=== PATIENT | male | born 1960 | race Caucasian/White ===

== ENCOUNTER 2018-12-07 08:38 | Emergency (ER) | payer OTHER ==
[2018-12-07] MEDS ORDERED: IPRATROPIUM-ALBUTEROL 3 ML NEB INHALATION STA (09:03)
--- NOTE | 2018-12-07 09:14 | ED ---
SOB HPI - General Chief Complaint: Shortness of Breath Stated Complaint: cough, SOB Time Seen by Provider: 12/07/18 08:53 Source: patient, RN notes reviewed Mode of arrival: wheelchair Limitations: no limitations - History of Present Illness Initial Comments: 58-year-old male presents emergency Department with chief complaint of cough congestion. Patient states she's been sick last few days. 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 Patient states he started with a cough which is minimally productive. Patient states he started cutting back on the smoking which is helped but states that he still requiring the use of his inhaler. Patient reports no fevers chills. Patient denies chest pain, headache, dizziness, leg swelling. - Related Data Home Medications Medication Instructions Recorded Confirmed Albuterol Inhaler [Ventolin Hfa 1 - 2 puff INHALATION RT-Q6H PRN 12/07/18 12/07/18 Inhaler] Atenolol [Tenormin] 50 mg PO DAILY 12/07/18 12/07/18 Atorvastatin Calcium [Lipitor] 20 mg PO DAILY 12/07/18 12/07/18 Famotidine [Pepcid] 20 mg PO BID PRN 12/07/18 12/07/18 Ibuprofen [Motrin] 600 mg PO Q8HR PRN 12/07/18 12/07/18 Lisinopril 20 mg PO DAILY 12/07/18 12/07/18 Loratadine [Claritin] 10 mg PO DAILY PRN 12/07/18 12/07/18 Multivitamins, Thera [Multivitamin 1 tab PO DAILY 12/07/18 12/07/18 (formulary)] Previous Rx's Medication Instructions Recorded Albuterol Sulfate [Proair Hfa] 1 - 2 puff INHALATION Q4HR PRN #1 12/07/18 inhaler Azithromycin [Zithromax Z-pack] 0 mg PO DIRECTED #1 pack 12/07/18 predniSONE 50 mg PO DAILY #5 tab 12/07/18 Allergies Allergy/AdvReac Type Severity Reaction Status Date / Time Penicillins Allergy Swelling Verified 12/07/18 08:58 Review of Systems ROS Statement: Those systems with pertinent positive or pertinent negative responses have been documented in the HPI. ROS Other: All systems not noted in ROS Statement are negative. Past Medical History Past Medical History: Hyperlipidemia, Hypertension History of Any Multi-Drug Resistant Organisms: None Reported Additional Past Surgical History / Comment(s): bilateral hip replace Past Psychological History: Depression Smoking Status: Current every day smoker Past Alcohol Use History: None Reported Past Drug Use History: None Reported General Exam Limitations: no limitations General appearance: alert, in no apparent distress Head exam: Present: atraumatic, normocephalic, normal inspection Eye exam: Present: normal appearance, PERRL, EOMI. Absent: scleral icterus, conjunctival injection, periorbital swelling ENT exam: Present: normal exam, normal oropharynx, mucous membranes moist Neck exam: Present: normal inspection, full ROM. Absent: tenderness, meningismus, lymphadenopathy Respiratory exam: Present: wheezes. Absent: normal lung sounds bilaterally, respiratory distress, rales, rhonchi, stridor Cardiovascular Exam: Present: regular rate, normal rhythm, normal heart sounds. Absent: systolic murmur, diastolic murmur, rubs, gallop, clicks GI/Abdominal exam: Present: soft, normal bowel sounds. Absent: distended, tenderness, guarding, rebound, rigid Course Vital Signs 12/07/18 12/07/18 12/07/18 08:43 09:21 09:31 Temperature 97.8 F Pulse Rate 52 L 49 L 54 L Respiratory 22 Rate Blood Pressure 142/92 O2 Sat by Pulse 97 Oximetry Medical Decision Making - Medical Decision Making 58-year-old male presented for cough congestion. Chest x-ray reviewed no acute abnormality. Patient does have mild underlying COPD. Patient given Solu-Medrol be discharged with prednisone and azithromycin along with pro-air inhaler. Patient agreed improvement after DuoNeb treatment in emergency department. Disposition Clinical Impression: COPD exacerbation, Acute bronchitis Disposition: HOME SELF-CARE Condition: Stable Instructions (If sedation given, give patient instructions): Acute Bronchitis (ED) Additional Instructions: Please return to the Emergency Department if symptoms worsen or any other concerns. Prescriptions: predniSONE 50 mg PO DAILY #5 tab Albuterol Sulfate [Proair Hfa] 1 - 2 puff INHALATION Q4HR PRN #1 inhaler PRN Reason: difficulty in breathing Azithromycin [Zithromax Z-pack] 0 mg PO DIRECTED #1 pack Is patient prescribed a controlled substance at d/c from ED?: No Referrals: None,Stated [Primary Care Provider] - 1-2 days Time of Disposition: 10:05
--- NOTE | 2018-12-07 09:48 | XR ---
EXAMINATION TYPE: XR chest 2V DATE OF EXAM: 12/07/2018 COMPARISON: NONE HISTORY: Shortness of breath and cough TECHNIQUE: Frontal and lateral views of the chest are obtained. FINDINGS: There is no focal air space opacity, pleural effusion, or pneumothorax seen. Increased AP diameter of the chest with relative flattening the hemidiaphragms may be indicative of underlying [employer] D. There is eventration of the right hemidiaphragm. Aorta is dense. The cardiac silhouette size is en larged. The osseous structures are intact. IMPRESSION: Cardiomegaly.
[2018-12-07] MEDS ORDERED: methylPREDNISolone SOD SUCCI 125 MG/2 ML VIAL IM ONE (10:03)
[2018-12-07 10:32] VITALS: BP 174/92; PULSE 57; RESP 18; TEMP 98.2
== END 2018-12-07 10:29 | disposition home or self-care (01) ==
LOC: EC 08:38
DX: J20.9 Acute bronchitis, unspecified (principal); J44.0 Chronic obstructive pulmonary disease with (acute) lower respiratory infection; J44.1 Chronic obstructive pulmonary disease with (acute) exacerbation; E78.5 Hyperlipidemia, unspecified; I10 Essential (primary) hypertension; F17.200 Nicotine dependence, unspecified, uncomplicated; Z79.899 Other long term (current) drug therapy; Z88.0 Allergy status to penicillin
CPT/HCPCS: 99285; 96372; 94640; 71046; J2930

== ENCOUNTER 2018-12-22 08:40 | Emergency (ER) | payer OTHER ==
[2018-12-22 09:12] VITALS: RESP 20
--- NOTE | 2018-12-22 09:12 | ED ---
General Adult HPI - General Chief complaint: Shortness of Breath Stated complaint: cough Time Seen by Provider: 12/22/18 08:47 Source: patient, RN notes reviewed Mode of arrival: wheelchair Limitations: no limitations - History of Present Illness Initial comments: Patient is a pleasant 58-year-old male presenting to the emergency Department with cough. Patient states he was here 7-10 days ago with similar symptoms. Patient states he received 3 days of steroids. Symptoms resolved for 3-5 days and then returned several days ago. Patient does have cough. Patient does have occasional green sputum. Patient states he does use his inhaler that also seems to help. Patient requests repeat treatment. Patient also complains of chronic right shoulder discomfort. Patient requests steroid injection for this. Patient states he is not able to see his orthopedic doctor for another week or so. - Related Data Home Medications Medication Instructions Recorded Confirmed Atenolol [Tenormin] 50 mg PO DAILY 12/07/18 12/22/18 Atorvastatin Calcium [Lipitor] 20 mg PO DAILY 12/07/18 12/22/18 Famotidine [Pepcid] 20 mg PO DAILY 12/07/18 12/22/18 Ibuprofen [Motrin] 600 mg PO Q8HR PRN 12/07/18 12/22/18 Lisinopril 20 mg PO DAILY 12/07/18 12/22/18 Loratadine [Claritin] 10 mg PO HS PRN 12/07/18 12/22/18 Multivitamins, Thera [Multivitamin 1 tab PO DAILY 12/07/18 12/22/18 (formulary)] Albuterol Sulfate [Proair Hfa] 1 - 2 puff INHALATION RT-Q4H PRN 12/22/18 12/22/18 Famotidine [Pepcid] 20 mg PO HS PRN 12/22/18 12/22/18 Previous Rx's Medication Instructions Recorded Albuterol Inhaler [Ventolin Hfa 2 puff INHALATION Q4HR PRN #1 12/22/18 Inhaler] inhaler Azithromycin [Zithromax Z-pack] 250 mg PO DIRECTED #6 tab 12/22/18 methylPREDNISolone Dose Pack 24 mg PO DAILY #1 tab 12/22/18 [Medrol Dose Pack] Allergies Allergy/AdvReac Type Severity Reaction Status Date / Time Penicillins Allergy Swelling Verified 12/22/18 09:02 Review of Systems ROS Statement: Those systems with pertinent positive or pertinent negative responses have been documented in the HPI. ROS Other: All systems not noted in ROS Statement are negative. Constitutional: Denies: fever, chills Eyes: Denies: eye pain ENT: Denies: ear pain Respiratory: Reports: cough Cardiovascular: Denies: chest pain Endocrine: Denies: fatigue Gastrointestinal: Denies: abdominal pain Genitourinary: Denies: dysuria Musculoskeletal: Denies: back pain Skin: Denies: rash Neurological: Denies: headache Past Medical History Past Medical History: Hyperlipidemia, Hypertension History of Any Multi-Drug Resistant Organisms: None Reported Past Surgical History: Joint Replacement Additional Past Surgical History / Comment(s): bilateral hip replacement Past Psychological History: Depression Smoking Status: Current every day smoker Past Alcohol Use History: None Reported Past Drug Use History: None Reported General Exam Limitations: no limitations General appearance: alert, in no apparent distress Head exam: Present: atraumatic Eye exam: Present: normal appearance, PERRL ENT exam: Present: normal oropharynx Neck exam: Present: normal inspection Respiratory exam: Present: wheezes (Minimal expiratory) Cardiovascular Exam: Present: regular rate, normal rhythm GI/Abdominal exam: Present: soft. Absent: tenderness Extremities exam: Present: normal inspection. Absent: pedal edema, calf tenderness Neurological exam: Present: alert Psychiatric exam: Present: normal affect, normal mood Skin exam: Present: normal color Course Vital Signs 12/22/18 12/22/18 12/22/18 08:42 08:46 09:23 Temperature 97.6 F Pulse Rate 90 92 Respiratory 18 20 Rate Blood Pressure 135/81 O2 Sat by Pulse 96 Oximetry 12/22/18 09:32 Temperature Pulse Rate 94 Respiratory Rate Blood Pressure O2 Sat by Pulse Oximetry Medical Decision Making - Medical Decision Making Patient reevaluated and updated. - Radiology Data Radiology results: image reviewed (Chest x-ray shows some bronchial wall thicke madan, correlate for bronchitis. Reactive airway disease.) Disposition Clinical Impression: Acute bronchitis Disposition: HOME SELF-CARE Condition: Stable Instructions (If sedation given, give patient instructions): Acute Bronchitis (ED) Additional Instructions: Please follow-up to primary care physician in the next couple days for recheck. Please also follow-up with your orthopedic doctor. Return for difficulty breathing, worsening or change in symptoms or other concerns. Prescriptions: methylPREDNISolone Dose Pack [Medrol Dose Pack] 24 mg PO DAILY #1 tab Albuterol Inhaler [Ventolin Hfa Inhaler] 2 puff INHALATION Q4HR PRN #1 inhaler PRN Reason: Dyspnea Azithromycin [Zithromax Z-pack] 250 mg PO DIRECTED #6 tab Is patient prescribed a controlled substance at d/c from ED?: No Referrals: Bailee Ojeda MD [REFERRING] - 1-2 days Time of Disposition: 10:35
[2018-12-22] MEDS: IPRATROPIUM-ALBUTEROL 3 ML NEB INHALATION STA (09:19)
--- NOTE | 2018-12-22 10:05 | XR ---
EXAMINATION TYPE: XR chest 2V DATE OF EXAM: 12/22/2018 COMPARISON: Prior chest x-ray 12/07/2018 HISTORY: Cough and shortness of breath TECHNIQUE: Frontal and lateral views of the chest are obtained. FINDINGS: There is no focal air space opacity, pleural effusion, or pneumothorax seen. The cardiac silhouette size is stable, upper limit of normal for size, may be accentuated appearance due to rotat ion. The osseous structures are intact. There is eventration of the right hemidiaphragm. Bronchial wall thickening is noted. Prominent lung volume with flattening the hemidiaphragms suggestive of unde rlying COPD. IMPRESSION: Correlate for bronchitis, reactive airways disease.
[2018-12-22] MEDS ORDERED: methylPREDNISolone SOD SUCCI 125 MG/2 ML VIAL IM ONE (10:33)
[2018-12-22 10:53] VITALS: BP 142/86; PULSE 81; TEMP 98
== END 2018-12-22 10:52 | disposition home or self-care (01) ==
LOC: EC 08:40
DX: J20.9 Acute bronchitis, unspecified (principal); J45.909 Unspecified asthma, uncomplicated; E78.5 Hyperlipidemia, unspecified; I10 Essential (primary) hypertension; F17.200 Nicotine dependence, unspecified, uncomplicated; Z88.0 Allergy status to penicillin; Z79.899 Other long term (current) drug therapy; Z96.643 Presence of artificial hip joint, bilateral
CPT/HCPCS: 94640; 71046; 99285; 96372; J2930

== ENCOUNTER 2019-01-16 09:25 | Emergency (ER) | payer OTHER ==
--- NOTE | 2019-01-16 10:03 | ED ---
General Adult HPI - General Chief complaint: Shortness of Breath Stated complaint: SOB Time Seen by Provider: 01/16/19 09:36 Source: patient, family, RN notes reviewed, old records reviewed Mode of arrival: wheelchair Limitations: no limitations - History of Present Illness Initial comments: 59-year-old male history of COPD, current smoker presents for evaluation of dyspnea. He has had some mild cough which is at times productive. He's been seen in the emergency department on 2 other occasions with acute bronchitis, COPD over the past one month. States symptoms have not significantly improved. Over the past 24 hours he developed bilateral lower extremity swelling which she has had in the past. He has no diagnosis of CAD, no diagnosis of congestive heart failure. Denies fever or chills. Denies chest pain. - Related Data Home Medications Medication Instructions Recorded Confirmed Atenolol [Tenormin] 50 mg PO DAILY 12/07/18 01/16/19 Atorvastatin Calcium [Lipitor] 20 mg PO DAILY 12/07/18 01/16/19 Famotidine [Pepcid] 20 mg PO DAILY 12/07/18 01/16/19 Ibuprofen [Motrin] 600 mg PO Q8HR PRN 12/07/18 01/16/19 Lisinopril 20 mg PO DAILY 12/07/18 01/16/19 Loratadine [Claritin] 10 mg PO HS PRN 12/07/18 01/16/19 Multivitamins, Thera [Multivitamin 1 tab PO DAILY 12/07/18 01/16/19 (formulary)] Famotidine [Pepcid] 20 mg PO HS PRN 12/22/18 01/16/19 Albuterol Inhaler [Ventolin Hfa 2 puff INHALATION RT-QID PRN 01/16/19 01/16/19 Inhaler] Previous Rx's Medication Instructions Recorded Albuterol Inhaler [Ventolin Hfa 1 - 2 puff INHALATION Q4HR PRN #1 01/16/19 Inhaler] inhaler Albuterol Nebulized [Ventolin 2.5 mg INHALATION Q4H #60 nebu 01/16/19 Nebulized] Azithromycin [Zithromax Z-pack] 0 mg PO DIRECTED #6 tab 01/16/19 predniSONE 50 mg PO DAILY #5 tab 01/16/19 Allergies Allergy/AdvReac Type Severity Reaction Status Date / Time Penicillins Allergy Swelling Verified 01/16/19 10:01 Review of Systems ROS Statement: Those systems with pertinent positive or pertinent negative responses have been documented in the HPI. ROS Other: All systems not noted in ROS Statement are negative. Past Medical History Past Medical History: Hyperlipidemia, Hypertension History of Any Multi-Drug Resistant Organisms: None Reported Past Surgical History: Joint Replacement Additional Past Surgical History / Comment(s): bilateral hip replacement Past Psychological History: Depression Smoking Status: Current every day smoker Past Alcohol Use History: None Reported Past Drug Use History: None Reported General Exam Limitations: no limitations General appearance: alert, in no apparent distress Head exam: Present: atraumatic, normocephalic Eye exam: Present: normal appearance, PERRL ENT exam: Present: normal exam Neck exam: Present: normal inspection. Absent: tenderness, meningismus Respiratory exam: Present: wheezes, rhonchi. Absent: rales Cardiovascular Exam: Present: normal rhythm, bradycardia GI/Abdominal exam: Present: soft. Absent: distended, tenderness, guarding, rebound Extremities exam: Present: normal capillary refill, pedal edema. Absent: calf tenderness Neurological exam: Present: alert, oriented X3, CN II-XII intact. Absent: motor sensory deficit Psychiatric exam: Present: normal affect, normal mood Skin exam: Present: warm, dry, intact. Absent: cyanosis, diaphoretic Course Vital Signs 01/16/19 01/16/19 09:33 10:11 Temperature 97.4 F L Pulse Rate 51 L Respiratory 18 20 Rate Blood Pressure 124/70 O2 Sat by Pulse 96 Oximetry EKG Findings - EKG Comments: EKG Findings:: EKG: Sinus bradycardia with PAC, rate 53, [place] interval 152, QRS duration 100, QTC [address] segment elevation. Medical Decision Making - Medical Decision Making 59-year-old male history of COPD chronic bronchitis presenting with cough and dyspnea. He has wheezing and rhonchi throughout all lung [place]. X-ray shows COPD, does show cardiomegaly and signs of chronic bronchitis. He has a normal CBC, normal CMP, normal, negative troponin and BNP. He is offered observation for echo and continue treatment of COPD. He declines. Prefers outpatient treatment. He will follow with his primary care physician. He states he will obtain an echo as an outpatient. He will return with any worsening or changing symptoms. He is prescribed steroids, antibiotic, and albuterol. Patient encouraged to quit smoking. - Lab Data Result diagrams: 01/16/19 10:00 01/16/19 10:00 Lab Results 01/16/19 01/16/19 01/16/19 Range/Units 10:00 10:00 10:00 WBC 8.6 (3.8-10.6) k/uL RBC 4.83 (4.30-5.90) m/uL Hgb 13.9 (13.0-17.5) gm/dL Hct 42.6 (39.0-53.0) % MCV 88.1 (80.0-100.0) fL MCH 28.7 (25.0-35.0) pg MCHC 32.5 (31.0-37.0) g/dL RDW 15.3 (11.5-15.5) % Plt Count 278 (150-450) k/uL Neutrophils % 57 % Lymphocytes % 27 % Monocytes % 8 % Eosinophils % 4 % Basophils % 1 % Neutrophils # 4.9 (1.3-7.7) k/uL Lymphocytes # 2.3 (1.0-4.8) k/uL Monocytes # 0.7 (0-1.0) k/uL Eosinophils # 0.3 (0-0.7) k/uL Basophils # 0.1 (0-0.2) k/uL PT (9.0-12.0) sec INR (<1.2) APTT (22.0-30.0) sec Sodium 141 (137-145) mmol/L Potassium 4.6 (3.5-5.1) mmol/L Chloride 108 H (98-107) mmol/L Carbon Dioxide 25 (22-30) mmol/L Anion Gap 8 mmol/L BUN 20 (9-20) mg/dL Creatinine 0.90 (0.66-1.25) mg/dL Est GFR (CKD-EPI)AfAm >90 (>60 ml/min/1.73 sqM) Est GFR (CKD-EPI)NonAf >90 (>60 ml/min/1.73 sqM) Glucose 107 H (74-99) mg/dL Calcium 9.2 (8.4-10.2) mg/dL Magnesium 2.1 (1.6-2.3) mg/dL Total Bilirubin 1.1 (0.2-1.3) mg/dL AST 42 (17-59) U/L ALT 40 (21-72) U/L Alkaline Phosphatase 69 (38-126) U/L Troponin I (0.000-0.034) ng/mL NT-Pro-B Natriuret Pep 40 pg/mL Total Protein 7.0 (6.3-8.2) g/dL Albumin 4.2 (3.5-5.0) g/dL 01/16/19 01/16/19 Range/Units 10:00 10:00 WBC (3.8-10.6) k/uL RBC (4.30-5.90) m/uL Hgb (13.0-17.5) gm/dL Hct (39.0-53.0) % MCV (80.0-100.0) fL MCH (25.0-35.0) pg MCHC (31.0-37.0) g/dL RDW (11.5-15.5) % Plt Count (150-450) k/uL Neutrophils % % Lymphocytes % % Monocytes % % Eosinophils % % Basophils % % Neutrophils # (1.3-7.7) k/uL Lymphocytes # (1.0-4.8) k/uL Monocytes # (0-1.0) k/uL Eosinophils # (0-0.7) k/uL Basophils # (0-0.2) k/uL PT 9.7 (9.0-12.0) sec INR 0.9 (<1.2) APTT 24.2 (22.0-30.0) sec Sodium (137-145) mmol/L Potassium (3.5-5.1) mmol/L Chloride (98-107) mmol/L Carbon Dioxide (22-30) mmol/L Anion Gap mmol/L BUN (9-20) mg/dL Creatinine (0.66-1.25) mg/dL Est GFR (CKD-EPI)AfAm (>60 ml/min/1.73 sqM) Est GFR (CKD-EPI)NonAf (>60 ml/min/1.73 sqM) Glucose (74-99) mg/dL Calcium (8.4-10.2) mg/dL Magnesium (1.6-2.3) mg/dL Total Bilirubin (0.2-1.3) mg/dL AST (17-59) U/L ALT (21-72) U/L Alkaline Phosphatase (38-126) U/L Troponin I <0.012 (0.000-0.034) ng/mL NT-Pro-B Natriuret Pep pg/mL Total Protein (6.3-8.2) g/dL Albumin (3.5-5.0) g/dL Disposition Clinical Impression: Acute exacerbation of chronic obstructive airways disease Disposition: HOME SELF-CARE Condition: Fair Instructions (If sedation given, give patient instructions): Chronic Bronchitis (ED) Additional Instructions: Please follow up with primary care physician, schedule echocardiogram, and follow with pulmonology. Prescriptions: predniSONE 50 mg PO DAILY #5 tab Albuterol Inhaler [Ventolin Hfa Inhaler] 1 - 2 puff INHALATION Q4HR PRN #1 inh aler PRN Reason: Shortness Of Breath Albuterol Nebulized [Ventolin Nebulized] 2.5 mg INHALATION Q4H #60 nebu Azithromycin [Zithromax Z-pack] 0 mg PO DIRECTED #6 tab Is patient prescribed a controlled substance at d/c from ED?: No Referrals: None,Stated [Primary Care Provider] - 1-2 days Naya Topete MD [STAFF PHYSICIAN] - 1-2 days Jose Enrique Estrada MD [STAFF PHYSICIAN] - 1-2 days James Aguirre MD [STAFF PHYSICIAN] - 1-2 days Time of Disposition: 11:15
[2019-01-16 10:19] LABS: Basophils # (A) 0.1 k/uL (0-0.2); Basophils % (A) 1 %; Eosinophils # (A) 0.3 k/uL (0-0.7); Eosinophils % (A) 4 %; HCT 42.6 % (39.0-53.0); HGB 13.9 gm/dL (13.0-17.5); Lymphocytes # (A) 2.3 k/uL (1.0-4.8); Lymphocytes % (A) 27 %; MCH 28.7 pg (25.0-35.0); MCHC 32.5 g/dL (31.0-37.0); MCV 88.1 fL (80.0-100.0); Monocytes # (A) 0.7 k/uL (0-1.0); Monocytes % (A) 8 %; Neutrophils # (A) 4.9 k/uL (1.3-7.7); Neutrophils % (A) 57 %; Platelet Count 278 k/uL (150-450); RBC 4.83 m/uL (4.30-5.90); RDW 15.3 % (11.5-15.5); WBC 8.6 k/uL (3.8-10.6)
[2019-01-16] MEDS ORDERED: IPRATROPIUM-ALBUTEROL 3 ML NEB INHALATION STA (10:23)
[2019-01-16] MEDS ORDERED: DEXAMETHASONE SOD PHOSPHATE 10 MG/ML 1 ML VIAL IV STA (10:23)
[2019-01-16] MEDS ORDERED: ALBUTEROL NEBULIZED 2.5 MG/3 ML INHALATION STA (10:23)
[2019-01-16 10:27] LABS: INR 0.9 (<1.2); Partial Thromboplastin Time 24.2 sec (22.0-30.0); Prothrombin Time 9.7 sec (9.0-12.0)
[2019-01-16 10:32] LABS: ALT 40 U/L (21-72); AST 42 U/L (17-59); African American GFR (CKD) >90 (>60 ml/min/1.73 sqM); Albumin 4.2 g/dL (3.5-5.0); Alkaline Phosphatase 69 U/L (38-126); Anion Gap 8 mmol/L; Blood Urea Nitrogen 20 mg/dL (9-20); Calcium 9.2 mg/dL (8.4-10.2); Carbon Dioxide 25 mmol/L (22-30); Chloride 108 mmol/L (98-107); Glucose 107 mg/dL (74-99); Magnesium 2.1 mg/dL (1.6-2.3); Potassium 4.6 mmol/L (3.5-5.1); Sodium 141 mmol/L (137-145); Total Bilirubin 1.1 mg/dL (0.2-1.3)
--- NOTE | 2019-01-16 10:34 | XR ---
EXAMINATION TYPE: XR chest 2V DATE OF EXAM: 01/16/2019 HISTORY: difficulty breathing. REFERENCE: Previous study dated 12/22/2018. FINDINGS: Lung volumes are prominent. The heart is mildly enlarged. There are diffuse increased paramjit ngs. There is a partial eventration of the right hemidiaphragm. IMPRESSION: 1. COPD. 2. CARDIOMEGALY. 3. DIFFUSE INCREASED MARKINGS MAY BE ON THE BASIS OF CHRONIC BRONCHITIS.
[2019-01-16 11:45] VITALS: BP 124/84; PULSE 52; RESP 18; TEMP 98
== END 2019-01-16 11:44 | disposition home or self-care (01) ==
LOC: EC 09:25
DX: J44.1 Chronic obstructive pulmonary disease with (acute) exacerbation (principal); I51.7 Cardiomegaly; R00.1 Bradycardia, unspecified; I11.9 Hypertensive heart disease without heart failure; E78.5 Hyperlipidemia, unspecified; F17.200 Nicotine dependence, unspecified, uncomplicated; Z79.899 Other long term (current) drug therapy; Z88.0 Allergy status to penicillin; Z96.643 Presence of artificial hip joint, bilateral
CPT/HCPCS: 36415; 94640; 93005; 83880; 80053; 83735; 84484; 85025; 85610; 85730; 71046; 99285; 96374; J1100

== ENCOUNTER → 2019-04-12 | Outpatient (CLI) | payer OTHER ==
--- NOTE | 2019-04-12 14:47 | CT ---
EXAMINATION TYPE: CT lumbar spine wo con DATE OF EXAM: 04/12/2019 COMPARISON: None HISTORY: Lumbago CT DLP: [id number] mGycm CONTRAST: None TECHNIQUE: CT of the lumbar spine is performed on a spiral scan at 3 mm thick sections. Reconstructed images are performed in the coronal and sagittal planes. FINDINGS: T12-L1: No focal disc herniation or significant disc bulge is evident. No spinal canal stenosis or neural foraminal stenosis is present. L1-L2: No focal disc herniation or significant disc bulge is evident. No spinal canal stenosis or n eural foraminal stenosis is present L2-L3: There is narrowing of disc height. Residual disc bulging has moderate anterior thecal sac flat tening. Facet hypertrophy is present. No spinal canal stenosis present. Mild foraminal narrowing is p resent. L3-L4: Disc bulge has mild intrathecal sac compression. Facet degenerative changes are present. No sp inal canal stenosis present. Moderate to severe bilateral foraminal narrowing is present. L4-L5: Hard disc calcification is present causing moderate to marked central thecal sac impression. N o AP spinal canal stenosis present. Neural foramen are patent. Some disc space narrowing at L4-5 is p resent. L5-S1: No focal disc herniation or significant disc bulge is evident. No spinal canal stenosis or n eural foraminal stenosis is present Vertebral alignment appears normal. IMPRESSION: 1. Heart disc calcification posterior L4-5 has significant thecal sac compression without spinal adelina l stenosis. 2. Severe foraminal narrowing bilaterally C3-4 due to facet hypertrophy with associated disc material . 3. Mild disc bulging with moderate anterior thecal sac compression
== END | disposition home or self-care (01) ==
LOC: RADCTMAIN 08:09
PROVIDERS: ATTEND Psychiatry & Neurology Neurology
DX: M51.86 Other intervertebral disc disorders, lumbar region (principal)
CPT/HCPCS: 72131

== ENCOUNTER 2019-07-19 20:11 | Emergency (ER) | payer OTHER ==
[2019-07-19] MEDS ORDERED: CLINDAMYCIN 150 MG CAP PO STA (21:47)
[2019-07-19] MEDS ORDERED: HYDROcodone/APAP 7.5-325MG 1 EACH TAB PO ONE (21:47)
[2019-07-19] MEDS ORDERED: ACET/COD 300 MG/30 MG STARTER PACK 6 TAB BTL PO STA (21:48)
--- NOTE | 2019-07-19 21:49 | ED ---
ENT HPI - General Chief complaint: Dental/Oral Stated complaint: toothpain Time Seen by Provider: 07/19/19 21:39 Source: patient Mode of arrival: ambulatory Limitations: no limitations - History of Present Illness Initial comments: 59-year-old male presenting today for chief complaint of left lower dental pain. Patient states he overall has poor dentition with multiple cracked teeth. He states history of slight incorrect history per patient states he now has slight swelling of the left side of his face denies a swelling below tongue denies fever patient denies difficulty breathing or swelling. Remaining views negative upon arrival patient appears well besides acute distress he states he presented for antibiotics. Patient states he has established dental care. - Related Data Home Medications Medication Instructions Recorded Confirmed Atenolol [Tenormin] 50 mg PO DAILY 12/07/18 01/16/19 Atorvastatin Calcium [Lipitor] 20 mg PO DAILY 12/07/18 01/16/19 Famotidine [Pepcid] 20 mg PO DAILY 12/07/18 01/16/19 Ibuprofen [Motrin] 600 mg PO Q8HR PRN 12/07/18 01/16/19 Lisinopril 20 mg PO DAILY 12/07/18 01/16/19 Loratadine [Claritin] 10 mg PO HS PRN 12/07/18 01/16/19 Multivitamins, Thera [Multivitamin 1 tab PO DAILY 12/07/18 01/16/19 (formulary)] Famotidine [Pepcid] 20 mg PO HS PRN 12/22/18 01/16/19 Albuterol Inhaler [Ventolin Hfa 2 puff INHALATION RT-QID PRN 01/16/19 01/16/19 Inhaler] Previous Rx's Medication Instructions Recorded Albuterol Inhaler [Ventolin Hfa 1 - 2 puff INHALATION Q4HR PRN #1 01/16/19 Inhaler] inhaler Albuterol Nebulized [Ventolin 2.5 mg INHALATION Q4H #60 nebu 01/16/19 Nebulized] Azithromycin [Zithromax Z-pack] 0 mg PO DIRECTED #6 tab 01/16/19 predniSONE 50 mg PO DAILY #5 tab 01/16/19 Clindamycin [Cleocin] 450 mg PO Q8H 7 Days #63 capsule 07/19/19 Allergies Allergy/AdvReac Type Severity Reaction Status Date / Time Penicillins Allergy Swelling Verified 07/19/19 21:10 Review of Systems ROS Statement: Those systems with pertinent positive or pertinent negative responses have been documented in the HPI. ROS Other: All systems not noted in ROS Statement are negative. Past Medical History Past Medical History: Hyperlipidemia, Hypertension History of Any Multi-Drug Resistant Organisms: None Reported Past Surgical History: Joint Replacement Additional Past Surgical History / Comment(s): bilateral hip replacement Past Psychological History: Depression Smoking Status: Current every day smoker Past Alcohol Use History: None Reported Past Drug Use History: None Reported General Exam - General Exam Comments Initial Comments: General: The patient is awake and alert, in no distress, and does not appear acutely ill. Eye: +3 mm pupils are equal, round and reactive to light, extra-ocular movements are intact. No nystagmus. There is normal conjunctiva bilaterally. No signs of icterus. Ears, nose, mouth and throat: There are moist mucous membranes and no oral lesions. No palpable abscess. Patient has cracked dentition of tooth #22. No swelling below tongue below the angle of mandible very mild left-sided lower facial soft tissue swelling no redness Neck: The neck is supple, there is no tenderness or JVD. Cardiovascular: There is a regular rate and rhythm. No murmur, rub or gallop is appreciated. Respiratory: Lungs are clear to auscultation, respirations are non-labored, breath sounds are equal. No wheezes, stridor, rales, or rhonchi. Gastrointestinal: Soft, non-distended, non-tender abdomen without masses or organomegaly noted. There is no rebound or guarding present. Musculoskeletal: Normal ROM, no tenderness. Strength 5/5. Sensation intact. radial pulses equal bilaterally 2+. Neurological: A&O x 3. CN II-XII intact grossly, There are no obvious motor or sensory deficits. Coordination appears grossly intact. Speech is normal. Skin: Skin is warm and dry and no rashes or lesions are noted. Psychiatric: Cooperative, appropriate mood & affect, normal judgment. Limitations: no limitations Course Vital Signs 07/19/19 07/19/19 21:08 22:23 Temperature 97.8 F 98.6 F Pulse Rate 78 80 Respiratory 20 18 Rate Blood Pressure 145/81 136/74 O2 Sat by Pulse 96 97 Oximetry Medical Decision Making - Medical Decision Making 59-year-old male presenting for left lower dental pain. No evidence of abscess. Patient is cracked tooth. Patient be prescribed antibiotic to prevent abscess formation. Patient has dentist I encouraged follow-up within the next week. Patient states he will call tomorrow. Patient given clindamycin to penicillin ALLERGY and was discharged appearing well there were no signs of Jacob's angina or systemic spread of infection Disposition Clinical Impression: Pain, dental Disposition: HOME SELF-CARE Condition: Good Instructions (If sedation given, give patient instructions): Dental Abscess (ED) Additional Instructions: Please use medication as discussed. Please follow-up with dentist in the next 2 days. Please return to emergency room if the symptoms increase or worsen or for any other concerns-including fevers. Prescriptions: Clindamycin [Cleocin] 450 mg PO Q8H 7 Days #63 capsule Is patient prescribed a controlled substance at d/c from ED?: No Referrals: Bailee Ojeda MD [Primary Care Provider] - 1-2 days Time of Disposition: 21:48
[2019-07-19 22:24] VITALS: BP 136/74; PULSE 80; RESP 18; TEMP 98.6
== END 2019-07-19 22:24 | disposition home or self-care (01) ==
LOC: EC 20:11
DX: K03.81 Cracked tooth (principal); E78.5 Hyperlipidemia, unspecified; I10 Essential (primary) hypertension; F17.200 Nicotine dependence, unspecified, uncomplicated; Z88.0 Allergy status to penicillin; Z79.899 Other long term (current) drug therapy
CPT/HCPCS: 99283

== ENCOUNTER 2024-11-29 00:37 | Inpatient (IN) | payer MEDICARE, OTHER ==
--- NOTE | 2024-11-29 01:03 | ED ---
General Adult HPI - General Chief complaint: Extremity Problem,Nontraumatic Stated complaint: Leg Swelling Time Seen by Provider: 11/29/24 00:49 Source: patient, EMS, RN notes reviewed - History of Present Illness Initial comments: This is a 64-year-old male with a history of COPD, tobacco abuse, and hypert ension presenting to the emergency department via EMS for complaints of bilateral lower extremity edema. Patient states that he was evaluated and admitted at [facility] 3 weeks ago where he was discharged and followed up with his PCP. He states that he has follow-up appointment scheduled on Friday of this week however is concerned that the swelling is worsened over the past few days. Patient is scheduled to take Lasix 40 mg by mouth daily however denies history of heart failure, kidney disease. Denies orthopnea, exertional dyspnea, chest pain, history of DVT or PE. - Related Data Home Medications Medication Instructions Recorded Confirmed atenoloL [Tenormin] 50 mg PO DAILY 12/07/18 11/29/24 ALPRAZolam [Xanax] 2 mg PO BID PRN 11/29/24 11/29/24 Aspirin 81 mg PO DAILY 11/29/24 11/29/24 Budesonide/Glycopyr/Formoterol 2 puff INHALATION RT-BID 11/29/24 11/29/24 [Breztri Aerosphere Inhaler] Carboxymethylcellulose Sodium 1 drop BOTH EYES QID PRN 11/29/24 11/29/24 [Refresh Tears] Centrum Men's 50 Plus 1 tab PO DAILY 11/29/24 11/29/24 Cholecalciferol [Vitamin D3 (25 100 mcg PO DAILY 11/29/24 11/29/24 Mcg = 1000 Iu)] Doxycycline Monohydrate 100 mg PO BID 11/29/24 11/29/24 Furosemide [Lasix] 40 mg PO DAILY 11/29/24 11/29/24 Gabapentin [Neurontin] 100 mg PO TID 11/29/24 11/29/24 HYDROcodone/APAP 10-325MG [[place] 1 tab PO QID PRN 11/29/24 11/29/24 10-325] Meclizine [Antivert] 25 mg PO DAILY 11/29/24 11/29/24 Ondansetron Odt [Zofran Odt] 8 mg PO Q8HR PRN 11/29/24 11/29/24 Zolpidem [Ambien] 10 mg PO HS 11/29/24 11/29/24 lisinopriL 40 mg PO DAILY 11/29/24 11/29/24 tiZANidine [Zanaflex] 4 mg PO TID PRN 11/29/24 11/29/24 Allergies Allergy/AdvReac Type Severity Reaction Status Date / Time Penicillins Allergy Swelling Verified 11/29/24 08:11 Review of Systems ROS Statement: Those systems with pertinent positive or pertinent negative responses have been documented in the HPI. ROS Other: All systems not noted in ROS Statement are negative. Past Medical History Past Medical History: COPD, Hyperlipidemia, Hypertension History of Any Multi-Drug Resistant Organisms: None Reported Past Surgical History: Joint Replacement Additional Past Surgical History / Comment(s): bilateral hip replacement Past Psychological History: Depression Smoking Status: Current every day smoker Past Alcohol Use History: None Reported Past Drug Use History: None Reported General Exam General appearance: alert, in no apparent distress ENT exam: Present: normal exam, mucous membranes moist Neck exam: Present: normal inspection. Absent: tenderness, meningismus, lymphadenopathy Respiratory exam: Present: wheezes, decreased breath sounds. Absent: normal marvin g sounds bilaterally, respiratory distress, rales, rhonchi, stridor Cardiovascular Exam: Present: regular rate, normal rhythm, normal heart sounds. Absent: systolic murmur, diastolic murmur, rubs, gallop, clicks GI/Abdominal exam: Present: soft, distended, normal bowel sounds. Absent: tenderness, guarding, rebound, rigid Extremities exam: Present: normal inspection, full ROM, normal capillary refill, pedal edema, other (bilateral LE pedal edema, pitting). Absent: tenderness, joint swelling, calf tenderness Back exam: Present: normal inspection Neurological exam: Present: alert, oriented X3, CN II-XII intact Course Vital Signs 11/29/24 11/29/24 11/29/24 00:42 02:35 04:17 Temperature Pulse Rate 73 73 79 Respiratory 16 18 20 Rate Blood Pressure 92/65 89/77 94/81 O2 Sat by Pulse 96 95 95 Oximetry 11/29/24 11/29/24 07:05 07:30 Temperature 98 F Pulse Rate 77 76 Respiratory 18 18 Rate Blood Pressure 96/53 96/53 O2 Sat by Pulse 98 94 L Oximetry Medical Decision Making - Medical Decision Making Was pt. sent in by a medical professional or institution (, PA, [employer], urgent care, hospital, or prison...) When possible be specific @ -No Did you speak to anyone other than the patient for history (EMS, parent, family, police, friend...)? What history was obtained from this source @ -No Did you review nursing and triage notes (agree or disagree)? Why? @ -I reviewed and agree with nursing and triage notes Were old charts reviewed (outside hosp., previous admission, EMS record, old EKG, old radiological studies, urgent care reports/EKG's, prison records)? Report findings @ -No old charts were reviewed Differential Diagnosis (chest pain, altered mental status, abdominal pain women, abdominal pain men, vaginal bleeding, weakness, fever, dyspnea, syncope, headache, dizziness, GI bleed, back pain, seizure, CVA, palpatations, mental health, musculoskeletal)? @ -Differential Weakness: Hypoglycemia, shock, sepsis, hyponatremia, anemia, infection, [place], ETOH, adverse medicine reaction, overdose, stroke, this is not meant to be an all-inclusive list. EKG interpreted by me (3pts min.). @ -sinus rhythm with a ventricular rate of 68, AR interval 150, QRS 88, QT 388, QTc 406. X-rays interpreted by me (1pt min.). @ -None done CT interpreted by me (1pt min.). @ -None done U/S interpreted by me (1pt. min.). @ -None done What testing was considered but not performed or refused? (CT, X-rays, U/S, la bs)? Why? @ -None What meds were considered but not given or refused? Why? @ -None Did you discuss the management of the patient with other professionals (professionals i.e. , SHAR[facility], [employer], lab, RT, psych nurse, sexual assault social worker, entry level installation technician, teacher, weapons electrical engineering officer, outpatient case manager)? Give summary @ -EMH for admission Was smoking cessation discussed for >3mins.? @ -No Was critical care preformed (if so, how long)? @ -No Were there social determinants of health that impacted care today? How? (Homelessness, low income, unemployed, alcoholism, drug addiction, transportation, low edu. Level, literacy, decrease access to med. care, detention, rehab)? @ -No Was there de-escalation of care discussed even if they declined (Discuss DNR or withdrawal of care, Hospice)? DNR status @ -No What co-morbidities impacted this encounter? (DM, HTN, Smoking, COPD, CAD, Cancer, CVA, ARF, Chemo, Hep., AIDS, mental health diagnosis, sleep apnea, morbid obesity)? @ -None Was patient admitted / discharged? Hospital course, mention meds given and route, prescriptions, significant lab abnormalities, going to OR and other pertinent info. @ -Admitted. 64-year-old male presenting to emergency department via EMS for complaint of bilateral lower extremity. There is 1+ pitting edema bilaterally and patient is initially mildly hypotensive on arrival with a blood pressure of 92/65. Patient's initial CBC reveals leukocytosis of 15.6 with elevated neutrophils of 10.64. Additionally, initial CMP is concerning for kidney disease with a creatinine of 4.9, BUN of 87, GFR of 12. Discussed with patient he denies known history of kidney disease or kidney failure. Additionally, patient has severe hypocalcemia with a level of 5.4 and severely low hypomagnesemia with magnesium 0.4. Repeat testing does confirm hypocalcemia and hypomagnesemia. Patient is provided with 3 supplementation and will be mated to internal medicine and with nephrology on consult for further evaluation. Case has been discussed with Dr. Augustin, my attending spoke with the admitting team and admitted the patient. Undiagnosed new problem with uncertain prognosis? @ -No Drug Therapy requiring intensive monitoring for toxicity (Heparin, Nitro, Insulin, Cardizem)? @ -No Were any procedures done? @ -No Diagnosis/symptom? @ -hypomagnesemia, hypocalcemia, kidney disease Acute, or Chronic, or Acute on Chronic? @ -acute Uncomplicated (without systemic symptoms) or Complicated (systemic symptoms)? @ -complicated Side effects of treatment? @ -No Exacerbation, Progression, or Severe Exacerbation? @ -No Poses a threat to life or bodily function? How? (Chest pain, [place], [place], pneumonia, PE, COPD, DKA, ARF, appy, cholecystitis, CVA, Diverticulitis, Homicidal, Suicidal, threat to staff... and all critical care pts) @ -No - Lab Data Result diagrams: 11/29/24 01:20 11/29/24 11:31 Lab Results 11/29/24 11/29/24 11/29/24 Range/Units 01:20 01:20 04:30 WBC 15.66 H (4.50-10.00) 10*3/uL RBC 4.44 (4.40-5.60) 10*6/uL Hgb 12.5 L (13.0-17.0) g/dL Hct 36.8 L (39.6-50.0) % MCV 82.9 (80.0-97.0) fL MCH 28.2 (27.0-32.0) pg MCHC 34.0 (32.0-37.0) g/dL Plt Count 290 (140-440) 10*3/uL MPV 9.9 (9.5-12.2) fL Immature Gran % (Auto) 0.6 % Neutrophils % 67.9 % Lymphocytes % 17.7 % Monocytes % 11.8 % Eosinophils % 1.5 % Basophils % 0.5 % Immature Gran # 0.09 H (0.00-0.04) 10*3/uL Neutrophils # 10.64 H (1.80-7.70) 10*3/uL Lymphocytes # 2.77 (0.90-5.00) 10*3/uL Monocytes # 1.85 H (0.20-1.00) 10*3/uL Eosinophils # 0.23 (0.04-0.35) 10*3/uL Basophils # 0.08 (0.00-0.10) 10*3/uL Sodium 141 140 (137-145) mmol/L Potassium 4.1 4.8 (3.5-5.1) mmol/L Chloride 105 105 (98-107) mmol/L Carbon Dioxide 17 L 16 L (22-30) mmol/L Anion Gap 19 19 mmol/L BUN 87 H 87 H (9-20) mg/dL Creatinine 4.90 H 4.39 H (0.66-1.25) mg/dL Est GFR (CKD-EPI)AfAm 13 15 (>60 ml/min/1.73 sqM) Est GFR (CKD-EPI)NonAf 12 13 (>60 ml/min/1.73 sqM) Glucose 99 98 (74-99) mg/dL Osmolality (275-295) mOsm/kg Calcium 5.4 L* 5.3 L* (8.4-10.2) mg/dL Phosphorus 6.8 H (2.5-4.5) mg/dL Magnesium <0.4 L* <0.4 L* (1.6-2.3) mg/dL Total Bilirubin 1.5 H 1.5 H (0.2-1.3) mg/dL AST 45 50 (17-59) U/L ALT 21 21 (4-49) U/L Alkaline Phosphatase 75 61 (38-126) U/L NT-Pro-B Natriuret Pep 692 pg/mL Total Protein 7.1 6.9 (6.3-8.2) g/dL Albumin 3.9 3.6 (3.5-5.0) g/dL 11/29/24 Range/Units 04:30 WBC (4.50-10.00) 10*3/uL RBC (4.40-5.60) 10*6/uL Hgb (13.0-17.0) g/dL Hct (39.6-50.0) % MCV (80.0-97.0) fL MCH (27.0-32.0) pg MCHC (32.0-37.0) g/dL Plt Count (140-440) 10*3/uL MPV (9.5-12.2) fL Immature Gran % (Auto) % Neutrophils % % Lymphocytes % % Monocytes % % Eosinophils % % Basophils % % Immature Gran # (0.00-0.04) 10*3/uL Neutrophils # (1.80-7.70) 10*3/uL Lymphocytes # (0.90-5.00) 10*3/uL Monocytes # (0.20-1.00) 10*3/uL Eosinophils # (0.04-0.35) 10*3/uL Basophils # (0.00-0.10) 10*3/uL Sodium (137-145) mmol/L Potassium (3.5-5.1) mmol/L Chloride (98-107) mmol/L Carbon Dioxide (22-30) mmol/L Anion Gap mmol/L BUN (9-20) mg/dL Creatinine (0.66-1.25) mg/dL Est GFR (CKD-EPI)AfAm (>60 ml/min/1.73 sqM) Est GFR (CKD-EPI)NonAf (>60 ml/min/1.73 sqM) Glucose (74-99) mg/dL Osmolality 313 H (275-295) mOsm/kg Calcium (8.4-10.2) mg/dL Phosphorus (2.5-4.5) mg/dL Magnesium (1.6-2.3) mg/dL Total Bilirubin (0.2-1.3) mg/dL AST (17-59) U/L ALT (4-49) U/L Alkaline Phosphatase (38-126) U/L NT-Pro-B Natriuret Pep pg/mL Total Protein (6.3-8.2) g/dL Albumin (3.5-5.0) g/dL Disposition Clinical Impression: Hypomagnesemia, Hypocalcemia, Kidney disease with fluid retention Disposition: ADMITTED IP TO THIS [facility] Condition: Serious Decision to Admit Reason: Admit from EC Decision Date: 11/29/24
[2024-11-29 01:28] LABS: Basophils # (A) 0.08 10*3/uL (0.00-0.10); Basophils % (A) 0.5 %; Eosinophils # (A) 0.23 10*3/uL (0.04-0.35); Eosinophils % (A) 1.5 %; HCT 36.8 % (39.6-50.0); HGB 12.5 g/dL (13.0-17.0); Lymphocytes # (A) 2.77 10*3/uL (0.90-5.00); Lymphocytes % (A) 17.7 %; MCH 28.2 pg (27.0-32.0); MCV 82.9 fL (80.0-97.0); Mean Platelet Volume 9.9 fL (9.5-12.2); Monocytes # (A) 1.85 10*3/uL (0.20-1.00); Monocytes % (A) 11.8 %; Neutrophils # (A) 10.64 10*3/uL (1.80-7.70); Neutrophils % (A) 67.9 %; Platelet Count 290 10*3/uL (140-440); RBC 4.44 10*6/uL (4.40-5.60); RDW 15.6 % (11.5-14.5); WBC 15.66 10*3/uL (4.50-10.00)
[2024-11-29 01:50] LABS: ALT 21 U/L (4-49); AST 45 U/L (17-59); African American GFR (CKD) 13 (>60 ml/min/1.73 sqM); Albumin 3.9 g/dL (3.5-5.0); Alkaline Phosphatase 75 U/L (38-126); Anion Gap 19 mmol/L; Blood Urea Nitrogen 87 mg/dL (9-20); Carbon Dioxide 17 mmol/L (22-30); Chloride 105 mmol/L (98-107); Glucose 99 mg/dL (74-99); Non-African American GFR(CKD) 12 (>60 ml/min/1.73 sqM); Potassium 4.1 mmol/L (3.5-5.1); Sodium 141 mmol/L (137-145); Total Bilirubin 1.5 mg/dL (0.2-1.3); Total Protein 7.1 g/dL (6.3-8.2)
[2024-11-29 01:57] LABS: NT-Pro-B-Type Natriuretic Pept 692 pg/mL
[2024-11-29 02:30] LABS: Calcium 5.4 mg/dL (8.4-10.2); Magnesium <0.4 mg/dL (1.6-2.3)
[2024-11-29 04:56] LABS: ALT 21 U/L (4-49); African American GFR (CKD) 15 (>60 ml/min/1.73 sqM); Anion Gap 19 mmol/L; Blood Urea Nitrogen 87 mg/dL (9-20); Carbon Dioxide 16 mmol/L (22-30); Chloride 105 mmol/L (98-107); Glucose 98 mg/dL (74-99); Non-African American GFR(CKD) 13 (>60 ml/min/1.73 sqM); Sodium 140 mmol/L (137-145); Total Bilirubin 1.5 mg/dL (0.2-1.3)
[2024-11-29 05:12] LABS: Calcium 5.3 mg/dL (8.4-10.2)
[2024-11-29 05:13] LABS: Magnesium <0.4 mg/dL (1.6-2.3); Phosphorus 6.8 mg/dL (2.5-4.5); Potassium 4.8 mmol/L (3.5-5.1); Total Protein 6.9 g/dL (6.3-8.2)
[2024-11-29] MEDS ORDERED: NALOXONE 0.4 MG/ML 1 ML VIAL IV PRN (05:13)
--- NOTE | 2024-11-29 05:13 | XR ---
EXAM: XR Chest, 1 View CLINICAL HISTORY: ITS.REASON XR Reason: chest pain TECHNIQUE: Frontal view of the chest. COMPARISON: No relevant prior studies available. FINDINGS: Lungs: Bilateral perihilar interstitial prominence, possibly related to mild vascular congestion. Patchy bibasilar airspace disease likely related to atelectasis. Left lower lobe pneumonia is not excluded. Pleural space: Unremarkable. No pneumothorax. Heart: Borderline cardiomegaly. Mediastinum: Unremarkable. Normal mediastinal contour. Bones/joints: Degenerative changes bilateral glenohumeral joints and thoracolumbar spine. No acute fracture. IMPRESSION: Bilateral perihilar interstitial prominence, possibly related to mild vascular congestion. Patchy bibasilar airspace disease likely related to atelectasis. Left lower lobe pneumonia is not excluded.
[2024-11-29 05:14] LABS: AST 50 U/L (17-59); Albumin 3.6 g/dL (3.5-5.0); Alkaline Phosphatase 61 U/L (38-126)
[2024-11-29 06:38] LABS: Creatinine,Urine Random 115.1 mg/dL
[2024-11-29] MEDS: MAGNESIUM SULFATE-D5W PMX 1 GM in DEXTROSE/WATER 1 100ML.BAG IVPB ONE (06:40)
[2024-11-29] MEDS: SODIUM CHLORIDE 0.9% 1,000 ML IV SCH (06:40)
[2024-11-29 07:55] LABS: Potassium,Urine Random 28.8 mmol/L (25.0-125.0)
[2024-11-29] MEDS: MAGNESIUM SULFATE-D5W PMX 1 GM in DEXTROSE/WATER 1 100ML.BAG IVPB SCH (08:53)
[2024-11-29] MEDS: ACETAMINOPHEN TAB 325 MG TAB PO PRN (08:54)
[2024-11-29] MEDS ORDERED: ONDANSETRON ODT 8 MG TAB.RAPDIS PO PRN (11:10)
--- NOTE | 2024-11-29 11:23 | P.HPIM ---
History of Present Illness H&P Date: 11/29/24 Patient is a 64-year-old male with history of hypertension, COPD and hyperlipidemia presents to the ER for generalized weakness and swelling of his both legs. Patient reports that he was recently evaluated at [facility] for lower extremities edema and was prescribed furosemide 40 mg which he has been taking for 3 weeks. Patient reports that swelling in both legs has been getting worse for the last few days which prompted him come to the ER for further evaluation. Patient reports no history of renal disease. He reports normal urine output. Patient denies abdominal pain, hematuria, dysuria, fever, chills, nausea, vomiting, diarrhea or constipation. He has also been noticing that he has been getting weaker and started to have tremors in both hands. Patient denies any history of CVA and/or CAD. Patient denies any chest pain or shortness of breath or cough. He is a current active smoker. He smokes about a pack a day for 50 years. Drinks alcohol on the weekends. Laboratory evaluation shows WBC 15.6, hemoglobin 12.5, sodium 141, potassium 4.1, BUN 87, creatinine 4.90, potassium 5.4, magnesium < 0.4, total bilirubin 1.5, NT proBNP 692, urine pH 5.0, urine osmolarity 357. EKG shows normal sinus rhythm with ventricular rate of 68 bpm, SD intervals 150 ms, QRS duration 88 ms, QTc 4 6 ms, no ST segment elevation noted. R wave progression is normal. Chest x-ray shows chronic COPD changes with trace pleural effusion bilaterally. There is focal opacity noted on right lower lobe. Vital signs on arrival with Tmax of 98 F, pulse rate 73, respiratory 16, blood pressure 92/65, oxygen saturation 96% on room air. Review of systems: Pertinent positives and negatives as discussed in HPI, a complete review of systems was performed and all other systems are negative. Social history: As in HPI Physical examination: Vital signs reviewed General: non toxic, no distress, appears at stated age, morbidly obese Derm: no unusual rashes/lesions, warm Head: atraumatic, normocephalic, symmetric Eyes: EOMI, no lid lag, anicteric sclera, pupils equal round reactive to light ENT: Nose and ears atraumatic Neck: No cervical lymphadenopathy, trachea midline, supple Mouth: no lip lesion, mucus membranes moist Cardiovascular: S1S2 reg, no murmur, positive dorsalis pedis pulse bilateral, 2+ bilateral pitting edema Lungs: Decreased breath sounds bilaterally with bilateral rhonchi noted. No crackles no use of accessory muscles. Abdominal: soft, nontender to palpation, no guarding Ext: 5 out of 5 bilateral upper extremity motor strength, 4 out of 5 bilateral lower extremity motor strength. Sensation intact. Neuro: CN II-XI grossly intact, no gross focal neuro deficits, chvostek's sign positive Psych: Alert, oriented, appropriate affect Assessment/Plan: This is a Patient is a 64-year-old male with history of hypertension, COPD and hyperlipidemia presents to the ER for generalized weakness and swelling of his both legs. . Case was discussed with the Emergency Room provider and decision was made to admit the patient for JAQUAN, hypocalcemia and hypomagnesemia. Labs and images: Laboratory evaluation shows WBC 15.6, hemoglobin 12.5, sodium 141, potassium 4.1, BUN 87, creatinine 4.90, potassium 5.4, magnesium < 0.4, total bilirubin 1.5, NT proBNP 692, urine pH 5.0, urine osmolarity 357. EKG shows normal sinus rhythm with ventricular rate of 68 bpm, SD intervals 150 ms, QRS duration 88 ms, QTc 4 6 ms, no ST segment elevation noted. R wave progression is normal. Chest x-ray shows chronic COPD changes with trace pleural effusion bilaterally. There is focal opacity noted on right lower lobe. Vital signs on arrival with Tmax of 98 F, pulse rate 73, respiratory 16, blood pressure 92/65, oxygen saturation 96% on room air. Active: #Nonoliguric acute kidney injury secondary to ATN secondary to diuretic use #Hypomagnesemia likely in the setting of diuretic use #Hypocalcemia secondary to hypomagnesemia #Generalized weakness secondary above Order IV magnesium 4 g Order 1 g of calcium gluconate Repeat BMP at 1:00 in the afternoon Order renal bladder ultrasound Continue with IV normal saline at 75 cc/h Continue monitor urine output Consult nephrology Order creatinine kinase Avoid nephrotoxic drugs Hold DAVID and ARB Consult PT/OT #COPD, not in exacerbation #Leukocytosis, less likely to be infectious Currently on room air DuoNeb as needed Order procalcitonin to rule out bacterial infection Resume Breztri inhaler Repeat CBC this afternoon #History of hypertension Hold lisinopril Chronic conditions: Anxiety and depression: Resume Xanax DVT prophylaxis: Heparin 5000 units SQ twice daily GI prophylaxis: None F: IV normal saline 75 cc/h E: Replete as needed N: Renal diet A: Ambulatory at baseline The patient is admitted with an anticipated moderate than 2 midnight stay for evaluation of acute kidney injury and electrolyte abnormalities CODE STATUS: Full code Discussed with: Patient Anticipated discharge place: Pending clinical course Dictation was produced using [employer] dictation software. Please excuse any grammatical, word or spelling errors. Past Medical History Past Medical History: COPD, Hyperlipidemia, Hypertension History of Any Multi-Drug Resistant Organisms: None Reported Past Surgical History: Joint Replacement Additional Past Surgical History / Comment(s): bilateral hip replacement Past Psychological History: Depression Smoking Status: Current every day smoker Past Alcohol Use History: None Reported Past Drug Use History: None Reported Medications and Allergies Home Medications Medication Instructions Recorded Confirmed Type atenoloL [Tenormin] 50 mg PO DAILY 12/07/18 11/29/24 History ALPRAZolam [Xanax] 2 mg PO BID PRN 11/29/24 11/29/24 History Aspirin 81 mg PO DAILY 11/29/24 11/29/24 History Budesonide/Glycopyr/Formoterol 2 puff INHALATION RT-BID 11/29/24 11/29/24 History [Breztri Aerosphere Inhaler] Carboxymethylcellulose Sodium 1 drop BOTH EYES QID PRN 11/29/24 11/29/24 History [Refresh Tears] Centrum Men's 50 Plus 1 tab PO DAILY 11/29/24 11/29/24 History Cholecalciferol [Vitamin D3 (25 100 mcg PO DAILY 11/29/24 11/29/24 History Mcg = 1000 Iu)] Doxycycline Monohydrate 100 mg PO BID 11/29/24 11/29/24 History Furosemide [Lasix] 40 mg PO DAILY 11/29/24 11/29/24 History Gabapentin [Neurontin] 100 mg PO TID 11/29/24 11/29/24 History HYDROcodone/APAP 10-325MG [Carrier 1 tab PO QID PRN 11/29/24 11/29/24 History 10-325] Meclizine [Antivert] 25 mg PO DAILY 11/29/24 11/29/24 History Ondansetron Odt [Zofran Odt] 8 mg PO Q8HR PRN 11/29/24 11/29/24 History Zolpidem [Ambien] 10 mg PO HS 11/29/24 11/29/24 History lisinopriL 40 mg PO DAILY 11/29/24 11/29/24 History tiZANidine [Zanaflex] 4 mg PO TID PRN 11/29/24 11/29/24 History Allergies Allergy/AdvReac Type Severity Reaction Status Date / Time Penicillins Allergy Swelling Verified 11/29/24 08:11 Physical Exam Vitals: Vital Signs Temp Pulse Resp BP Pulse Ox 11/29/24 07:30 98 F 76 18 96/53 94 L 11/29/24 07:05 77 18 96/53 98 11/29/24 04:17 79 20 94/81 95 11/29/24 02:35 73 18 89/77 95 11/29/24 00:42 73 16 92/65 96 Intake and Output 11/28/24 11/29/24 11/29/24 22:59 06:59 14:59 Other: Weight 123.377 kg Results CBC & Chem 7: 11/29/24 01:20 11/29/24 11:31 Labs: Abnormal Lab Results - Last 24 Hours (Table) 11/29/24 11/29/24 11/29/24 Range/Units 01:20 01:20 04:30 WBC 15.66 H (4.50-10.00) 10*3/uL Hgb 12.5 L (13.0-17.0) g/dL Hct 36.8 L (39.6-50.0) % Immature Gran # 0.09 H (0.00-0.04) 10*3/uL Neutrophils # 10.64 H (1.80-7.70) 10*3/uL Monocytes # 1.85 H (0.20-1.00) 10*3/uL Carbon Dioxide 17 L 16 L (22-30) mmol/L BUN 87 H 87 H (9-20) mg/dL Creatinine 4.90 H 4.39 H (0.66-1.25) mg/dL Calcium 5.4 L* 5.3 L* (8.4-10.2) mg/dL Phosphorus 6.8 H (2.5-4.5) mg/dL Magnesium <0.4 L* <0.4 L* (1.6-2.3) mg/dL Total Bilirubin 1.5 H 1.5 H (0.2-1.3) mg/dL
[2024-11-29] MEDS: CALCIUM GLUCONATE IN NACL 1 GM in SALINE 1 100ML.BAG IVPB ONE (11:38)
[2024-11-29] MEDS: ASPIRIN 81 MG PO SCH (11:41)
[2024-11-29] MEDS: MECLIZINE 25 MG TAB PO SCH (11:41)
[2024-11-29] MEDS: SODIUM CHLORIDE 0.9% 500 ML 500 ML IV ONE (11:48)
[2024-11-29 11:58] LABS: African American GFR (CKD) 17 (>60 ml/min/1.73 sqM); Anion Gap 16 mmol/L; Blood Urea Nitrogen 79 mg/dL (9-20); Carbon Dioxide 14 mmol/L (22-30); Chloride 109 mmol/L (98-107); Glucose 131 mg/dL (74-99); Non-African American GFR(CKD) 15 (>60 ml/min/1.73 sqM); Potassium 3.4 mmol/L (3.5-5.1); Sodium 139 mmol/L (137-145)
[2024-11-29 12:00] LABS: Calcium 5.2 mg/dL (8.4-10.2); Creatine Kinase 1273 U/L (55-170)
[2024-11-29] MEDS ORDERED: MAGNESIUM OXIDE 400 MG TAB PO SCH (13:00)
--- NOTE | 2024-11-29 13:00 | US ---
EXAMINATION TYPE: US renals and bladder DATE OF EXAM: 11/29/2024 COMPARISON: NONE CLINICAL INDICATION: Male, 64 years old with history of JAQUAN; Abnormal labs. TECHNIQUE: Grayscale imaging of the bilateral kidneys and urinary bladder: FINDINGS: EXAM MEASUREMENTS: Right Kidney: 11.1 x 5.5 x 6.0 cm Left Kidney: 10.5 x 4.9 x 5.6 cm Pin Drafting Machine Tender notes:Suboptimal due to patient body habitus Right Kidney: No hydronephrosis or masses seen. Left Kidney: Medial upper pole hypoechoic lesion with posterior enhancement = 3.3 x 3.2 x 3.0 cm, osorio ited visualization. No hydronephrosis. Bladder: distended, anechoic Bilateral Jets not seen IMPRESSION: 1. Exam limited by patient body habitus. No hydronephrosis seen on either side. 2. A 3.3 cm cortical lesion at the upper pole of the left kidney favored to represent a cyst. Interna l echoes could be artifactual or could represent debris. Recommend 6 month follow-up ultrasound to en sure stability. [facility], Workstation: [id number], 11/29/2024 12:58 PM
--- NOTE | 2024-11-29 13:11 | P.CONS ---
History of Present Illness - Reason for Consult Consult date: 11/29/24 Acute renal failure Requesting physician: Benedicto Augustin - History of Present Illness 64-year-old male with past medical history of hypertension, COPD, hyperlipidemia who presented to the ER for generalized weakness and swelling of both of his legs. Patient reports he was started on Lasix 20 mg. Recently was evaluated at [facility] for lower extremity edema and Lasix was increased to 40 mg which she has been taking for 3 weeks. Patient denies any history of urinary retention. Low blood pressures noted. Patient denies any new medications or antibiotic use. Patient is on DAVID inhibitor, currently holding. Patient denies any diarrhea, fevers, chills, abdominal pain. Labs on admission showed WBC 15.66 (likely reactive). BUN 87, creatinine 4.90, calcium 5.4, magnesium less than 0.4. Previous creatinine 1.0 in 2018 Past Medical History Past Medical History: COPD, Hyperlipidemia, Hypertension History of Any Multi-Drug Resistant Organisms: None Reported Past Surgical History: Joint Replacement Additional Past Surgical History / Comment(s): bilateral hip replacement Past Psychological History: Depression Smoking Status: Current every day smoker Past Alcohol Use History: None Reported Past Drug Use History: None Reported Medications and Allergies Home Medications Medication Instructions Recorded Confirmed Type atenoloL [Tenormin] 50 mg PO DAILY 12/07/18 11/29/24 History ALPRAZolam [Xanax] 2 mg PO BID PRN 11/29/24 11/29/24 History Aspirin 81 mg PO DAILY 11/29/24 11/29/24 History Budesonide/Glycopyr/Formoterol 2 puff INHALATION RT-BID 11/29/24 11/29/24 History [Breztri Aerosphere Inhaler] Carboxymethylcellulose Sodium 1 drop BOTH EYES QID PRN 11/29/24 11/29/24 History [Refresh Tears] Centrum Men's 50 Plus 1 tab PO DAILY 11/29/24 11/29/24 History Cholecalciferol [Vitamin D3 (25 100 mcg PO DAILY 11/29/24 11/29/24 History Mcg = 1000 Iu)] Doxycycline Monohydrate 100 mg PO BID 11/29/24 11/29/24 History Furosemide [Lasix] 40 mg PO DAILY 11/29/24 11/29/24 History Gabapentin [Neurontin] 100 mg PO TID 11/29/24 11/29/24 History HYDROcodone/APAP 10-325MG [Oil Trough 1 tab PO QID PRN 11/29/24 11/29/24 History 10-325] Meclizine [Antivert] 25 mg PO DAILY 11/29/24 11/29/24 History Ondansetron Odt [Zofran Odt] 8 mg PO Q8HR PRN 11/29/24 11/29/24 History Zolpidem [Ambien] 10 mg PO HS 11/29/24 11/29/24 History lisinopriL 40 mg PO DAILY 11/29/24 11/29/24 History tiZANidine [Zanaflex] 4 mg PO TID PRN 11/29/24 11/29/24 History Allergies Allergy/AdvReac Type Severity Reaction Status Date / Time Penicillins Allergy Swelling Verified 11/29/24 08:11 Physical Exam Vitals: Vital Signs Temp Pulse Resp BP Pulse Ox 11/29/24 07:30 98 F 76 18 96/53 94 L 11/29/24 07:05 77 18 96/53 98 11/29/24 04:17 79 20 94/81 95 11/29/24 02:35 73 18 89/77 95 11/29/24 00:42 73 16 92/65 96 Intake and Output 11/28/24 11/29/24 11/29/24 22:59 06:59 14:59 Other: Weight 123.377 kg Patient is awake, comfortable, no acute distress Examination of the heart S1 and S2 Examination of the lungs shows bilateral breath sounds are heard no crackles or wheezing Abdomen is soft nontender Examination of lower extremities shows no edema. PROFESSOR OF GERMAN exam shows patient is able to move all 4 extremities, albeit some weakness from his baseline. Results CBC & Chem 7: 11/29/24 16:15 11/29/24 16:15 Labs: Abnormal Lab Results - Last 24 Hours (Table) 11/29/24 11/29/24 11/29/24 Range/Units 01:20 01:20 04:30 WBC 15.66 H (4.50-10.00) 10*3/uL Hgb 12.5 L (13.0-17.0) g/dL Hct 36.8 L (39.6-50.0) % Immature Gran # 0.09 H (0.00-0.04) 10*3/uL Neutrophils # 10.64 H (1.80-7.70) 10*3/uL Monocytes # 1.85 H (0.20-1.00) 10*3/uL Carbon Dioxide 17 L 16 L (22-30) mmol/L BUN 87 H 87 H (9-20) mg/dL Creatinine 4.90 H 4.39 H (0.66-1.25) mg/dL Calcium 5.4 L* 5.3 L* (8.4-10.2) mg/dL Phosphorus 6.8 H (2.5-4.5) mg/dL Magnesium <0.4 L* <0.4 L* (1.6-2.3) mg/dL Total Bilirubin 1.5 H 1.5 H (0.2-1.3) mg/dL Assessment and Plan Assessment: 1. Acute kidney injury, nonoliguric secondary to hypovolemia and ATN associated with hypotension. Check UA. Check ultrasound of the kidneys. DAVID inhibitors and diuretics on hold. Currently receiving IV fluids 2. Hypocalcemia, secondary to JAQUAN, volume depletion, and hypomagnesemia, rule out nutritional vitamin D deficiency and hypoparathyroidism 3. Hypomagnesemia secondary to loop diuretic, currently being replaced. 4. Hyperphosphatemia, secondary to JAQUAN 5. Anion gap metabolic acidosis secondary to JAQUAN 6. Hypokalemia secondary to diuresis and use of loop diuretics Plan: Plan: Continue with IV fluids, switch to IV bicarb Replace magnesium oral and IV Replace calcium Check PTH and 25-hydroxy vitamin D levels rule out hypoparathyroidism Repeat BMP in afternoon Continue to hold DAVID inhibitor Hold nephrotoxic agents Follow-up on kidney ultrasound Repeat labs in a.m. Thank you for the consultation. We will continue to follow the patient with you during his hospitalization.
[2024-11-29] MEDS: DEXTROSE 5% IN WATER 1,000 ML with SODIUM BICARB (1 MEQ/ML) 150 ML IV SCH (13:32)
[2024-11-29] MEDS: MAGNESIUM OXIDE 400 MG TAB PO SCH (13:34)
[2024-11-29] MEDS: POTASSIUM CHLORIDE ER 20 MEQ TAB.ER PO STA (13:34)
[2024-11-29] MEDS ORDERED: IPRATROPIUM-ALBUTEROL 3 ML NEB INHALATION PRN (16:06)
[2024-11-29 16:34] LABS: Basophils # (A) 0.06 10*3/uL (0.00-0.10); Basophils % (A) 0.5 %; Eosinophils # (A) 0.13 10*3/uL (0.04-0.35); HCT 34.2 % (39.6-50.0); HGB 11.8 g/dL (13.0-17.0); Lymphocytes # (A) 1.78 10*3/uL (0.90-5.00); Lymphocytes % (A) 13.8 %; MCH 28.5 pg (27.0-32.0); MCHC 34.5 g/dL (32.0-37.0); MCV 82.6 fL (80.0-97.0); Monocytes # (A) 1.35 10*3/uL (0.20-1.00); Monocytes % (A) 10.5 %; Neutrophils % (A) 73.7 %; Platelet Count 275 10*3/uL (140-440); RBC 4.14 10*6/uL (4.40-5.60); RDW 15.5 % (11.5-14.5); WBC 12.88 10*3/uL (4.50-10.00)
[2024-11-29 16:45] LABS: African American GFR (CKD) 20 (>60 ml/min/1.73 sqM); Anion Gap 16 mmol/L; Blood Urea Nitrogen 78 mg/dL (9-20); Carbon Dioxide 16 mmol/L (22-30); Chloride 108 mmol/L (98-107); Glucose 105 mg/dL (74-99); Magnesium 1.2 mg/dL (1.6-2.3); Non-African American GFR(CKD) 17 (>60 ml/min/1.73 sqM); Potassium 3.7 mmol/L (3.5-5.1); Sodium 140 mmol/L (137-145)
[2024-11-29 17:34] LABS: Calcium 5.6 mg/dL (8.4-10.2)
[2024-11-29] MEDS: ALPRAZolam 1 MG TAB PO PRN (18:12)
[2024-11-29 20:53] LABS: Appearance,Urine Clear (Clear); Bacteria,Urine Occasional /hpf; Bilirubin,Urine Negative (Negative); Blood,Urine Trace (Negative); Color,Urine Colorless; Glucose,Urine (UA) Negative (Negative); Ketones,Urine Negative (Negative); Leukocyte Esterase,Urine Negative (Negative); Mucus,Urine Rare /hpf; Nitrite,Urine Negative (Negative); PH, Urine 5.5 (5.0-8.0); Protein,Urine Trace (Negative); RBC,Urine 1 /hpf (0-5); Specific Gravity,Urine 1.013 (1.001-1.035); Squamous Epithelial Cell,Urine <1 /hpf (0-4); Urobilinogen,Urine <2.0 mg/dL (<2.0); WBC,Urine 1 /hpf (0-5)
[2024-11-29] MEDS: SYMBICORT 160-4.5 MCG INHALER INHALATION SCH (21:09)
[2024-11-29] MEDS: ZOLPIDEM 5 MG TAB PO SCH (21:39)
[2024-11-29] MEDS: GABAPENTIN 100 MG CAP PO SCH (21:39)
[2024-11-29] MEDS: HYDROcodone/APAP 10-325MG 1 EACH TAB PO PRN (21:39)
[2024-11-29] MEDS: CALCIUM GLUCONATE IN NACL 2 GM in SALINE 1 100ML.BAG IVPB ONE (22:40)
[2024-11-30 06:45] LABS: Basophils # (A) 0.06 10*3/uL (0.00-0.10); Basophils % (A) 0.6 %; Eosinophils # (A) 0.22 10*3/uL (0.04-0.35); Eosinophils % (A) 2.1 %; HCT 34.9 % (39.6-50.0); HGB 11.9 g/dL (13.0-17.0); Lymphocytes # (A) 1.92 10*3/uL (0.90-5.00); Lymphocytes % (A) 18.2 %; MCH 28.3 pg (27.0-32.0); MCHC 34.1 g/dL (32.0-37.0); MCV 83.1 fL (80.0-97.0); Monocytes # (A) 1.21 10*3/uL (0.20-1.00); Monocytes % (A) 11.4 %; Neutrophils # (A) 7.12 10*3/uL (1.80-7.70); Neutrophils % (A) 67.3 %; Platelet Count 277 10*3/uL (140-440); RDW 15.5 % (11.5-14.5); WBC 10.57 10*3/uL (4.50-10.00)
[2024-11-30 07:07] LABS: African American GFR (CKD) 26 (>60 ml/min/1.73 sqM); Anion Gap 15 mmol/L; Blood Urea Nitrogen 66 mg/dL (9-20); Calcium 6.5 mg/dL (8.4-10.2); Carbon Dioxide 17 mmol/L (22-30); Chloride 110 mmol/L (98-107); Glucose 110 mg/dL (74-99); Magnesium 1.2 mg/dL (1.6-2.3); Non-African American GFR(CKD) 23 (>60 ml/min/1.73 sqM); Potassium 3.9 mmol/L (3.5-5.1); Sodium 142 mmol/L (137-145)
[2024-11-30] MEDS: TIOTROPIUM 2.5 MCG INHALER INHALATION SCH (08:22)
[2024-11-30] MEDS: CHOLECALCIFEROL 25 MCG (1000 IU) TABLET PO SCH (10:14)
[2024-11-30] MEDS: MAGNESIUM SULFATE-D5W PMX 1 GM in DEXTROSE/WATER 1 100ML.BAG IVPB STA (10:14)
[2024-11-30] MEDS: MAGNESIUM SULFATE-D5W PMX 1 GM in DEXTROSE/WATER 1 100ML.BAG IVPB SCH (11:37)
--- NOTE | 2024-11-30 12:10 | P.PN ---
Subjective Progress Note Date: 11/30/24 Patient seen in consultation for acute kidney injury, hypocalcemia, hypomagnesemia. BUN and creatinine improving. No new complaints. Objective - Vital Signs Vital signs: Vital Signs Temp 98.8 F 11/30/24 04:00 Pulse 70 11/30/24 04:00 Resp 18 11/30/24 04:00 BP 119/74 11/30/24 04:00 Pulse Ox 97 11/30/24 04:00 FiO2 Intake & Output 11/29/24 11/30/24 11/30/24 18:59 06:59 18:59 Intake Total 1290 20 240 Output Total 1600 300 Balance -310 -280 240 Weight 123.377 kg 125 kg Intake: IV 10 20 Invasive Line 1 10 20 Intake, IV Titration 800 Amount Calcium Gluconate in NaCl 100 1 gm In Saline 1 100ml. bag @ 100 mls/hr IVPB ONCE ONE Rx#:[id number] Magnesium Sulfate-D5w Pmx 100 1 gm In Dextrose/Water 1 100ml.bag @ 100 mls/hr IVPB ONCE ONE Rx#: [id number] Magnesium Sulfate-D5w Pmx 100 1 gm In Dextrose/Water 1 100ml.bag @ 100 mls/hr IVPB Q1H CALEB Rx#: [id number] Sodium Chloride 0.9% 500 500 ml 500 ml @ 999 mls/hr IV .Q31M ONE Rx#:[id number] Oral 480 240 Output: Urine 1600 300 Other: Voiding Method Urinal Urinal - Exam Patient is awake, comfortable, no acute distress Examination of the heart S1 and S2 Examination of the lungs shows bilateral breath sounds are heard no crackles or wheezing Abdomen is soft nontender Examination of lower extremities shows no edema. SUPERINTENDENT FISH HATCHERY exam shows patient is able to move all 4 extremities, albeit some weakness from his baseline. - Labs CBC & Chem 7: 11/30/24 06:02 11/30/24 16:04 Labs: Abnormal Lab Results - Last 24 Hours (Table) 11/29/24 11/29/24 11/29/24 Range/Units 04:30 05:29 11:09 WBC (4.50-10.00) 10*3/uL RBC (4.40-5.60) 10*6/uL Hgb (13.0-17.0) g/dL Hct (39.6-50.0) % Immature Gran # (0.00-0.04) 10*3/uL Neutrophils # (1.80-7.70) 10*3/uL Monocytes # (0.20-1.00) 10*3/uL Potassium (3.5-5.1) mmol/L Chloride (98-107) mmol/L Carbon Dioxide (22-30) mmol/L BUN (9-20) mg/dL Creatinine (0.66-1.25) mg/dL Glucose (74-99) mg/dL Osmolality 313 H (275-295) mOsm/kg Calcium (8.4-10.2) mg/dL Magnesium (1.6-2.3) mg/dL Creatine Kinase (55-170) U/L PTH Intact (14.0-72.0) pg/mL Urine Protein Trace H (Negative) Urine Blood Trace H (Negative) Urine Bacteria Occasional H (None) /hpf Urine Mucus Rare H (None) /hpf Urine Osmolality 357 L (400-1100) mOsm/kg 11/29/24 11/29/24 11/29/24 Range/Units 11:31 16:15 16:15 WBC (4.50-10.00) 10*3/uL RBC (4.40-5.60) 10*6/uL Hgb (13.0-17.0) g/dL Hct (39.6-50.0) % Immature Gran # (0.00-0.04) 10*3/uL Neutrophils # (1.80-7.70) 10*3/uL Monocytes # (0.20-1.00) 10*3/uL Potassium 3.4 L (3.5-5.1) mmol/L Chloride 109 H 108 H (98-107) mmol/L Carbon Dioxide 14 L 16 L (22-30) mmol/L BUN 79 H 78 H (9-20) mg/dL Creatinine 3.99 H 3.50 H (0.66-1.25) mg/dL Glucose 131 H 105 H (74-99) mg/dL Osmolality (275-295) mOsm/kg Calcium 5.2 L* 5.6 L* (8.4-10.2) mg/dL Magnesium 1.2 L (1.6-2.3) mg/dL Creatine Kinase 1273 H* (55-170) U/L PTH Intact 132.0 H (14.0-72.0) pg/mL Urine Protein (Negative) Urine Blood (Negative) Urine Bacteria (None) /hpf Urine Mucus (None) /hpf Urine Osmolality (400-1100) mOsm/kg 11/29/24 11/30/24 11/30/24 Range/Units 16:15 06:02 06:02 WBC 12.88 H 10.57 H (4.50-10.00) 10*3/uL RBC 4.14 L 4.20 L (4.40-5.60) 10*6/uL Hgb 11.8 L 11.9 L (13.0-17.0) g/dL Hct 34.2 L 34.9 L (39.6-50.0) % Immature Gran # 0.06 H (0.00-0.04) 10*3/uL Neutrophils # 9.50 H (1.80-7.70) 10*3/uL Monocytes # 1.35 H 1.21 H (0.20-1.00) 10*3/uL Potassium (3.5-5.1) mmol/L Chloride 110 H (98-107) mmol/L Carbon Dioxide 17 L (22-30) mmol/L BUN 66 H (9-20) mg/dL Creatinine 2.80 H (0.66-1.25) mg/dL Glucose 110 H (74-99) mg/dL Osmolality (275-295) mOsm/kg Calcium 6.5 L (8.4-10.2) mg/dL Magnesium 1.2 L (1.6-2.3) mg/dL Creatine Kinase (55-170) U/L PTH Intact (14.0-72.0) pg/mL Urine Protein (Negative) Urine Blood (Negative) Urine Bacteria (None) /hpf Urine Mucus (None) /hpf Urine Osmolality (400-1100) mOsm/kg Assessment and Plan Assessment: 1. Acute kidney injury, nonoliguric secondary to hypovolemia and ATN associated with hypotension. Urinalysis unremarkable. Ultrasound shows suspected renal cyst without obstruction. DAVID inhibitors and diuretics on hold. Currently receiving IV fluids 2. Hypocalcemia, secondary to JAQUAN, volume depletion, and hypomagnesemia, ruled out nutritional vitamin D deficiency and hypoparathyroidism 3. Hypomagnesemia secondary to loop diuretic, currently being replaced. 4. Hyperphosphatemia, secondary to JAQUAN 5. Anion gap metabolic acidosis secondary to JAQUAN 6. Hypokalemia secondary to diuresis and use of loop diuretics Plan: Continue with IV bicarb Replace magnesium oral and IV Replace calcium Repeat BMP in afternoon Continue to hold DAVID inhibitor Hold nephrotoxic agents Repeat labs in a.m. Patient is seen and examined. Agree with resident's findings assessment and plan.
[2024-11-30] MEDS: CALCIUM GLUCONATE IN NACL 2 GM in SALINE 1 100ML.BAG IVPB ONE (13:13)
--- NOTE | 2024-11-30 13:50 | P.PN ---
Subjective Progress Note Date: 11/30/24 Patient is a 64-year-old male with history of hypertension, COPD and hyperlipidemia presents to the ER for generalized weakness and swelling of his both legs. Patient reports that he was recently evaluated at [facility] for lower extremities edema and was prescribed furosemide 40 mg which he has been taking for 3 weeks. Patient reports that swelling in both legs has been getting worse for the last few days which prompted him come to the ER for further evaluation. Patient reports no history of renal disease. He reports normal urine output. Patient denies abdominal pain, hematuria, dysuria, fever, chills, nausea, vomiting, diarrhea or constipation. He has also been noticing that he has been getting weaker and started to have tremors in both hands. Patient denies any history of CVA and/or CAD. Patient denies any chest pain or shortness of breath or cough. He is a current active smoker. He smokes about a pack a day for 50 years. Drinks alcohol on the weekends. Laboratory evaluation shows WBC 15.6, hemoglobin 12.5, sodium 141, potassium 4.1, BUN 87, creatinine 4.90, potassium 5.4, magnesium < 0.4, total bilirubin 1.5, NT proBNP 692, urine pH 5.0, urine osmolarity 357. EKG shows normal sinus rhythm with ventricular rate of 68 bpm, VT intervals 150 ms, QRS duration 88 ms, QTc 4 6 ms, no ST segment elevation noted. R wave progression is normal. Chest x-ray shows chronic COPD changes with trace pleural effusion bilaterally. There is focal opacity noted on right lower lobe. Vital signs on arrival with Tmax of 98 F, pulse rate 73, respiratory 16, blood pressure 92/65, oxygen saturation 96% on room air. 12/17/2024: Patient seen and examined at the bedside. No acute events overnight. Labs from today shows WBC 10.57, hemoglobin 11.9, BUN 66, creatinine 2.80, calcium 6.5, magnesium 1.2. Urine output is good. No new complaints. Social history: As in HPI Physical examination: Vital signs reviewed General: non toxic, no distress, appears at stated age, morbidly obese Derm: no unusual rashes/lesions, warm Head: atraumatic, normocephalic, symmetric Eyes: EOMI, no lid lag, anicteric sclera, pupils equal round reactive to light ENT: Nose and ears atraumatic Neck: No cervical lymphadenopathy, trachea midline, supple Mouth: no lip lesion, mucus membranes moist Cardiovascular: S1S2 reg, no murmur, positive dorsalis pedis pulse bilateral, 2+ bilateral pitting edema Lungs: Decreased breath sounds bilaterally with bilateral rhonchi noted. No crackles no use of accessory muscles. Abdominal: soft, nontender to palpation, no guarding Ext: 5 out of 5 bilateral upper extremity motor strength, 4 out of 5 bilateral lower extremity motor strength. Sensation intact. Neuro: CN II-XI grossly intact, no gross focal neuro deficits, chvostek's sign positive Psych: Alert, oriented, appropriate affect Assessment/Plan: This is a Patient is a 64-year-old male with history of hypertension, COPD and hyperlipidemia presents to the ER for generalized weakness and swelling of his both legs. . Case was discussed with the Emergency Room provider and decision was made to admit the patient for JAQUAN, hypocalcemia and hypomagnesemia. Active: #Nonoliguric acute kidney injury secondary to ATN secondary to diuretic use #Hypomagnesemia likely in the setting of diuretic use #Hypocalcemia secondary to hypomagnesemia #Generalized weakness secondary above #Mild rhabdomyolysis Continue to replace calcium and magnesium Repeat BMP in the afternoon today and then tomorrow a.m. Renal bladder ultrasound normal Continue with IV normal saline at 75 cc/h Continue monitor urine output Neurology on board, note reviewed, appreciate recs Avoid nephrotoxic drugs Continue to hold DAVID and ARB PT/OT on board #COPD, not in exacerbation #Leukocytosis, less likely to be infectious Currently on room air DuoNeb as needed Order procalcitonin to rule out bacterial infection Resume Breztri inhaler Repeat CBC this afternoon #History of hypertension Hold lisinopril Chronic conditions: Anxiety and depression: Resume Xanax DVT prophylaxis: Heparin 5000 units SQ twice daily GI prophylaxis: None F: IV normal saline 75 cc/h E: Replete as needed N: Renal diet A: Ambulatory at baseline The patient is admitted with an anticipated moderate than 2 midnight stay for evaluation of acute kidney injury and electrolyte abnormalities CODE STATUS: Full code Discussed with: Patient Anticipated discharge place: Pending clinical course Dictation was produced using [employer] dictation software. Please excuse any grammatical, word or spelling errors. Objective - Vital Signs Vital signs: Vital Signs Temp 98.1 F 05/13/25 08:00 Pulse 80 11/30/24 11:33 Resp 18 11/30/24 11:33 BP 105/71 11/30/24 11:33 Pulse Ox 98 11/30/24 11:33 FiO2 Intake & Output 11/29/24 11/30/24 11/30/24 18:59 06:59 18:59 Intake Total 1290 20 240 Output Total 1600 300 600 Balance -310 -280 -360 Weight 123.377 kg 125 kg Intake: IV 10 20 Invasive Line 1 10 20 Intake, IV Titration 800 Amount Calcium Gluconate in NaCl 100 1 gm In Saline 1 100ml. bag @ 100 mls/hr IVPB ONCE ONE Rx#:[id number] Magnesium Sulfate-D5w Pmx 100 1 gm In Dextrose/Water 1 100ml.bag @ 100 mls/hr IVPB ONCE ONE Rx#: [id number] Magnesium Sulfate-D5w Pmx 100 1 gm In Dextrose/Water 1 100ml.bag @ 100 mls/hr IVPB Q1H CALEB Rx#: [id number] Sodium Chloride 0.9% 500 500 ml 500 ml @ 999 mls/hr IV .Q31M ONE Rx#:[id number] Oral 480 240 Output: Urine 1600 300 600 Other: Voiding Method Urinal Urinal - Labs CBC & Chem 7: 11/30/24 06:02 11/30/24 06:02 Labs: Abnormal Lab Results - Last 24 Hours (Table) 11/29/24 11/29/24 11/29/24 Range/Units 04:30 11:09 16:15 WBC (4.50-10.00) 10*3/uL RBC (4.40-5.60) 10*6/uL Hgb (13.0-17.0) g/dL Hct (39.6-50.0) % Immature Gran # (0.00-0.04) 10*3/uL Neutrophils # (1.80-7.70) 10*3/uL Monocytes # (0.20-1.00) 10*3/uL Chloride 108 H (98-107) mmol/L Carbon Dioxide 16 L (22-30) mmol/L BUN 78 H (9-20) mg/dL Creatinine 3.50 H (0.66-1.25) mg/dL Glucose 105 H (74-99) mg/dL Calcium 5.6 L* (8.4-10.2) mg/dL Magnesium 1.2 L (1.6-2.3) mg/dL Procalcitonin 1.77 H (0.02-0.50) ng/mL PTH Intact (14.0-72.0) pg/mL Urine Protein Trace H (Negative) Urine Blood Trace H (Negative) Urine Bacteria Occasional H (None) /hpf Urine Mucus Rare H (None) /hpf 11/29/24 11/29/24 11/30/24 Range/Units 16:15 16:15 06:02 WBC 12.88 H (4.50-10.00) 10*3/uL RBC 4.14 L (4.40-5.60) 10*6/uL Hgb 11.8 L (13.0-17.0) g/dL Hct 34.2 L (39.6-50.0) % Immature Gran # 0.06 H (0.00-0.04) 10*3/uL Neutrophils # 9.50 H (1.80-7.70) 10*3/uL Monocytes # 1.35 H (0.20-1.00) 10*3/uL Chloride 110 H (98-107) mmol/L Carbon Dioxide 17 L (22-30) mmol/L BUN 66 H (9-20) mg/dL Creatinine 2.80 H (0.66-1.25) mg/dL Glucose 110 H (74-99) mg/dL Calcium 6.5 L (8.4-10.2) mg/dL Magnesium 1.2 L (1.6-2.3) mg/dL Procalcitonin (0.02-0.50) ng/mL PTH Intact 132.0 H (14.0-72.0) pg/mL Urine Protein (Negative) Urine Blood (Negative) Urine Bacteria (None) /hpf Urine Mucus (None) /hpf 11/30/24 Range/Units 06:02 WBC 10.57 H (4.50-10.00) 10*3/uL RBC 4.20 L (4.40-5.60) 10*6/uL Hgb 11.9 L (13.0-17.0) g/dL Hct 34.9 L (39.6-50.0) % Immature Gran # (0.00-0.04) 10*3/uL Neutrophils # (1.80-7.70) 10*3/uL Monocytes # 1.21 H (0.20-1.00) 10*3/uL Chloride (98-107) mmol/L Carbon Dioxide (22-30) mmol/L BUN (9-20) mg/dL Creatinine (0.66-1.25) mg/dL Glucose (74-99) mg/dL Calcium (8.4-10.2) mg/dL Magnesium (1.6-2.3) mg/dL Procalcitonin (0.02-0.50) ng/mL PTH Intact (14.0-72.0) pg/mL Urine Protein (Negative) Urine Blood (Negative) Urine Bacteria (None) /hpf Urine Mucus (None) /hpf
[2024-11-30 16:27] LABS: African American GFR (CKD) 35 (>60 ml/min/1.73 sqM); Anion Gap 15 mmol/L; Blood Urea Nitrogen 56 mg/dL (9-20); Calcium 7.3 mg/dL (8.4-10.2); Carbon Dioxide 18 mmol/L (22-30); Chloride 107 mmol/L (98-107); Glucose 105 mg/dL (74-99); Magnesium 1.6 mg/dL (1.6-2.3); Non-African American GFR(CKD) 30 (>60 ml/min/1.73 sqM); Potassium 4.4 mmol/L (3.5-5.1); Sodium 140 mmol/L (137-145)
--- NOTE | 2024-12-01 09:25 | P.PN ---
Subjective Progress Note Date: 12/01/24 Patient is a 64-year-old male with history of hypertension, COPD and hyperlipidemia presents to the ER for generalized weakness and swelling of his both legs. Patient reports that he was recently evaluated at [facility] for lower extremities edema and was prescribed furosemide 40 mg which he has been taking for 3 weeks. Patient reports that swelling in both legs has been getting worse for the last few days which prompted him come to the ER for further evaluation. Patient reports no history of renal disease. He reports normal urine output. Patient denies abdominal pain, hematuria, dysuria, fever, chills, nausea, vomiting, diarrhea or constipation. He has also been noticing that he has been getting weaker and started to have tremors in both hands. Patient denies any history of CVA and/or CAD. Patient denies any chest pain or shortness of breath or cough. He is a current active smoker. He smokes about a pack a day for 50 years. Drinks alcohol on the weekends. Laboratory evaluation shows WBC 15.6, hemoglobin 12.5, sodium 141, potassium 4.1, BUN 87, creatinine 4.90, potassium 5.4, magnesium < 0.4, total bilirubin 1.5, NT proBNP 692, urine pH 5.0, urine osmolarity 357. EKG shows normal sinus rhythm with ventricular rate of 68 bpm, MA intervals 150 ms, QRS duration 88 ms, QTc 4 6 ms, no ST segment elevation noted. R wave progression is normal. Chest x-ray shows chronic COPD changes with trace pleural effusion bilaterally. There is focal opacity noted on right lower lobe. Vital signs on arrival with Tmax of 98 F, pulse rate 73, respiratory 16, blood pressure 92/65, oxygen saturation 96% on room air. 11/30/2024: Patient seen and examined at the bedside. No acute events overnight. Labs from today shows WBC 10.57, hemoglobin 11.9, BUN 66, creatinine 2.80, calcium 6.5, magnesium 1.2. Urine output is good. No new complaints. 12/01/2024: Patient seen and examined at the bedside. No acute events overnight. Patient continues to complain of weakness in lower extremities. Patient is also complaining of constipation he did have a small bowel movement yesterday. No urinary or bowel incontinence. Saddle anesthesia is absent. No new focal neurological deficit. Lab work from yesterday shows improving renal function and chemistries. Labs from today show WBC 9.74, hemoglobin 11.8, BUN 41, creatinine 1.71, calcium 8.2, magnesium 1.8. Social history: As in HPI Physical examination: Vital signs reviewed General: non toxic, no distress, appears at stated age, morbidly obese Derm: no unusual rashes/lesions, warm Head: atraumatic, normocephalic, symmetric Eyes: EOMI, no lid lag, anicteric sclera, pupils equal round reactive to light ENT: Nose and ears atraumatic Neck: No cervical lymphadenopathy, trachea midline, supple Mouth: no lip lesion, mucus membranes moist Cardiovascular: S1S2 reg, no murmur, positive dorsalis pedis pulse bilateral, 2+ bilateral pitting edema Lungs: Decreased breath sounds bilaterally with bilateral rhonchi noted. No crackles no use of accessory muscles. Abdominal: soft, nontender to palpation, no guarding Ext: 5 out of 5 bilateral upper extremity motor strength, 4 out of 5 bilateral lower extremity motor strength. Sensation intact. Neuro: CN II-XI grossly intact, no gross focal neuro deficits, chvostek's sign positive Psych: Alert, oriented, appropriate affect Assessment/Plan: This is a Patient is a 64-year-old male with history of hypertension, COPD and hyperlipidemia presents to the ER for generalized weakness and swelling of his both legs. . Case was discussed with the Emergency Room provider and decision was made to admit the patient for JAQUAN, hypocalcemia and hypomagnesemia. Active: #Nonoliguric acute kidney injury secondary to ATN secondary to diuretic use #Hypomagnesemia likely in the setting of diuretic use #Hypocalcemia secondary to hypomagnesemia #Generalized weakness secondary above #Mild rhabdomyolysis #History of neuropathy Replace calcium and magnesium as needed Patient on magnesium oxide 400 mg p.o. 3 times daily, add potassium carbonate 500 mg p.o. 3 times daily Repeat BMP tomorrow a.m. Renal bladder ultrasound normal Continue with IV normal saline at 75 cc/h Continue monitor urine output Neurology on board, note reviewed, appreciate recs Avoid nephrotoxic drugs Continue to hold DAVID and ARB PT/OT on board Order vitamin B12, serum folate, methylmalonic acid. #COPD, not in exacerbation #Leukocytosis, less likely to be infectious Currently on room air DuoNeb as needed Order procalcitonin to rule out bacterial infection Resume Breztri inhaler Repeat CBC this afternoon #History of hypertension Hold lisinopril Chronic conditions: Anxiety and depression: Resume Xanax DVT prophylaxis: Heparin 5000 units SQ twice daily GI prophylaxis: None F: IV normal saline 75 cc/h E: Replete as needed N: Renal diet A: Ambulatory at baseline CODE STATUS: Full code Discussed with: Patient Anticipated discharge place: Pending clinical course Dictation was produced using [employer] dictation software. Please excuse any grammatical, word or spelling errors. Objective - Vital Signs Vital signs: Vital Signs Temp 98.9 F 11/30/24 20:00 Pulse 78 12/01/24 04:00 Resp 16 12/01/24 04:00 BP 122/73 12/01/24 04:00 Pulse Ox 94 L 12/01/24 04:00 FiO2 Intake & Output 11/30/24 12/01/24 12/01/24 18:59 06:59 18:59 Intake Total 480 Output Total 1050 200 Balance -570 -200 Intake: Oral 480 Output: Urine 1050 200 Other: Voiding Method Urinal Urinal - Labs CBC & Chem 7: 12/01/24 09:32 12/01/24 09:32 Labs: Abnormal Lab Results - Last 24 Hours (Table) 11/29/24 11/30/24 Range/Units 04:30 16:04 Carbon Dioxide 18 L (22-30) mmol/L BUN 56 H (9-20) mg/dL Creatinine 2.23 H (0.66-1.25) mg/dL Glucose 105 H (74-99) mg/dL Calcium 7.3 L (8.4-10.2) mg/dL Procalcitonin 1.77 H (0.02-0.50) ng/mL
[2024-12-01 09:52] LABS: Basophils # (A) 0.08 10*3/uL (0.00-0.10); Basophils % (A) 0.8 %; Eosinophils # (A) 0.37 10*3/uL (0.04-0.35); Eosinophils % (A) 3.8 %; HCT 34.3 % (39.6-50.0); HGB 11.8 g/dL (13.0-17.0); Lymphocytes # (A) 2.25 10*3/uL (0.90-5.00); Lymphocytes % (A) 23.1 %; MCH 28.6 pg (27.0-32.0); MCHC 34.4 g/dL (32.0-37.0); MCV 83.3 fL (80.0-97.0); Mean Platelet Volume 9.6 fL (9.5-12.2); Monocytes # (A) 0.84 10*3/uL (0.20-1.00); Monocytes % (A) 8.6 %; Neutrophils # (A) 6.16 10*3/uL (1.80-7.70); Neutrophils % (A) 63.3 %; Platelet Count 304 10*3/uL (140-440); RBC 4.12 10*6/uL (4.40-5.60); RDW 15.1 % (11.5-14.5); WBC 9.74 10*3/uL (4.50-10.00)
[2024-12-01] MEDS: CALCIUM CARBONATE 500 MG CHEWABLE PO SCH ×2 (09:54→21:04)
[2024-12-01] MEDS: LACTULOSE 20 GM/30 ML CUP PO ONE (09:55)
[2024-12-01] MEDS: HEPARIN SODIUM,PORCINE 5,000 UNIT/ML 1 ML VIAL SQ SCH (09:56)
[2024-12-01 10:09] LABS: African American GFR (CKD) 48 (>60 ml/min/1.73 sqM); Anion Gap 12 mmol/L; Blood Urea Nitrogen 41 mg/dL (9-20); Calcium 8.2 mg/dL (8.4-10.2); Carbon Dioxide 26 mmol/L (22-30); Chloride 103 mmol/L (98-107); Glucose 116 mg/dL (74-99); Magnesium 1.8 mg/dL (1.6-2.3); Non-African American GFR(CKD) 41 (>60 ml/min/1.73 sqM); Potassium 3.6 mmol/L (3.5-5.1); Sodium 141 mmol/L (137-145)
--- NOTE | 2024-12-01 16:38 | P.PN ---
Subjective Progress Note Date: 12/01/24 Patient seen in consultation for acute kidney injury, hypocalcemia, hypomagnesemia. BUN and creatinine improving. No new complaints. Objective - Vital Signs Vital signs: Vital Signs Temp 98.9 F 11/30/24 20:00 Pulse 78 12/01/24 04:00 Resp 16 12/01/24 04:00 BP 122/73 12/01/24 04:00 Pulse Ox 94 L 12/01/24 04:00 FiO2 Intake & Output 11/30/24 12/01/24 12/01/24 18:59 06:59 18:59 Intake Total 480 222 Output Total 1050 200 325 Balance -570 -200 -103 Intake: Oral 480 222 Output: Urine 1050 200 325 Other: Voiding Method Urinal Urinal - Exam Patient is awake, comfortable, no acute distress Examination of the heart S1 and S2 Examination of the lungs shows bilateral breath sounds are heard no crackles or wheezing Abdomen is soft nontender Examination of lower extremities shows no edema. 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 - Labs CBC & Chem 7: 12/01/24 09:32 12/01/24 09:32 Labs: Abnormal Lab Results - Last 24 Hours (Table) 11/29/24 11/30/24 Range/Units 04:30 16:04 Carbon Dioxide 18 L (22-30) mmol/L BUN 56 H (9-20) mg/dL Creatinine 2.23 H (0.66-1.25) mg/dL Glucose 105 H (74-99) mg/dL Calcium 7.3 L (8.4-10.2) mg/dL Procalcitonin 1.77 H (0.02-0.50) ng/mL Assessment and Plan Assessment: 1. Acute kidney injury, nonoliguric secondary to hypovolemia and ATN associated with hypotension. Urinalysis unremarkable. Ultrasound shows suspected renal cyst without obstruction. DAVID inhibitors and diuretics on hold. Currently receiving IV fluids 2. Hypocalcemia, secondary to JAQUAN, volume depletion, and hypomagnesemia, ruled out nutritional vitamin D deficiency and hypoparathyroidism 3. Hypomagnesemia secondary to loop diuretic, currently being replaced. 4. Hyperphosphatemia, secondary to JAQUAN 5. Anion gap metabolic acidosis secondary to JAQUAN 6. Hypokalemia secondary to diuresis and use of loop diuretics Plan: Discontinued IVF and continue to hold DAVID inhibitor Replace magnesium oral and IV Replace calcium Continue Vitamin D supplementation Hold nephrotoxic agents Repeat labs in a.m. Thank you for the consultation. We will continue to follow the patient with you during his hospitalization.
[2024-12-02 05:27] VITALS: RESP 19
[2024-12-02 08:01] LABS: African American GFR (CKD) 58 (>60 ml/min/1.73 sqM); Anion Gap 10 mmol/L; Blood Urea Nitrogen 30 mg/dL (9-20); Calcium 8.4 mg/dL (8.4-10.2); Carbon Dioxide 24 mmol/L (22-30); Chloride 106 mmol/L (98-107); Glucose 99 mg/dL (74-99); Magnesium 1.8 mg/dL (1.6-2.3); Non-African American GFR(CKD) 50 (>60 ml/min/1.73 sqM); Potassium 4.3 mmol/L (3.5-5.1); Sodium 140 mmol/L (137-145)
[2024-12-02 11:39] VITALS: TEMP 98.1
--- NOTE | 2024-12-02 12:30 | P.PN ---
Subjective Patient is seen for follow-up for acute kidney injury. No significant complaints today Renal function has improved with serum creatinine down to 1.4 mg/dL. IV fluids discontinued yesterday. Objective - Vital Signs Vital signs: Vital Signs Temp 98.1 F 12/02/24 08:00 Pulse 84 12/02/24 08:00 Resp 19 12/02/24 08:00 BP 125/76 12/02/24 08:00 Pulse Ox 98 12/02/24 08:00 FiO2 Intake & Output 12/01/24 12/02/24 12/02/24 18:59 06:59 18:59 Intake Total 458 118 Output Total 325 Balance 133 118 Weight 116 kg Intake: Oral 458 118 Output: Urine 325 Other: Voiding Method Urinal Urinal # Voids 1 # Bowel Movements 1 - Exam Patient is awake, comfortable, no acute distress Examination of the heart S1 and S2 Examination of the lungs shows bilateral breath sounds are heard no crackles or wheezing Abdomen is soft nontender Examination of lower extremities shows no edema. 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 Acute kidney injury, nonoliguric secondary to hypovolemia and ATN associated with hypotension. Urinalysis unremarkable. Ultrasound shows suspected renal cyst without obstruction. DAVID inhibitors and diuretics on hold. Currently receiving IV fluids 2. Hypocalcemia, secondary to JAQUAN, volume depletion, and hypomagnesemia, ruled out nutritional vitamin D deficiency and hypoparathyroidism. Vitamin D level is on the lower side at 36.5 and patient is started on supplementation. 3. Hypomagnesemia secondary to loop diuretic, currently being replaced. 4. Hyperphosphatemia, secondary to JAQUAN 5. Anion gap metabolic acidosis secondary to JAQUAN 6. Hypokalemia secondary to diuresis and use of loop diuretics Plan: Continue off of IV fluids Patient is stable for discharge from nephrology standpoint May resume lower dose of diuretics in 1 to 2 days post discharge. Recommend to hold DAVID inhibitors as blood pressure remains low but can resume as outpatient if blood pressure is elevated.
--- NOTE | 2024-12-02 16:06 | P.DS ---
Providers Date of admission: 11/29/24 05:22 Attending physician: Gonzalez Junior MD Consults: 11/29/24 05:21 Consult Physician Routine Consulting Provider: Anyi Silverio Consult Reason/Comments: Acute kidney failure Do you want consulting provider notified?: Yes Primary care physician: Raphael Neal MD Hospital Course: Discharge Diagnosis: #Nonoliguric acute kidney injury secondary to ATN secondary to diuretic use #Hypomagnesemia likely in the setting of diuretic use #Hypocalcemia secondary to hypomagnesemia #Generalized weakness secondary above #Mild rhabdomyolysis #History of neuropathy #COPD not in exacerbation #Leukocytosis, less likely to be infectious #History of hypertension Hospital Course: Patient is a 64-year-old male with history of hypertension, COPD and hyperlip idemia presents to the ER for generalized weakness and swelling of his both legs. Patient reports that he was recently evaluated at [facility] for lower extremities edema and was prescribed furosemide 40 mg which he has been taking for 3 weeks. Patient reports that swelling in both legs has been getting worse for the last few days which prompted him come to the ER for further evaluation. Patient reports no history of renal disease. He reports normal urine output. Patient denies abdominal pain, hematuria, dysuria, fever, chills, nausea, vomiting, diarrhea or constipation. He has also been noticing that he has been getting weaker and started to have tremors in both hands. Patient denies any history of CVA and/or CAD. Patient denies any chest pain or shortness of breath or cough. He is a current active smoker. He smokes about a pack a day for 50 years. Drinks alcohol on the weekends. Laboratory evaluation shows WBC 15.6, hemoglobin 12.5, sodium 141, potassium 4.1 , BUN 87, creatinine 4.90, calcium 5.4, magnesium < 0.4, total bilirubin 1.5, NT proBNP 692, urine pH 5.0, urine osmolarity 357. EKG shows normal sinus rhythm with ventricular rate of 68 bpm, CO intervals 150 ms, QRS duration 88 ms, QTc 4 6 ms, no ST segment elevation noted. R wave progression is normal. Chest x-ray shows chronic COPD changes with trace pleural effusion bilaterally. There is focal opacity noted on right lower lobe. Vital signs on arrival with Tmax of 98 F, pulse rate 73, respiratory 16, blood pressure 92/65, oxygen saturation 96% on room air. Nephrology was consulted. Lasix was put on hold. Subsequent lab work continue to show improvement in his creatinine, magnesium, and calcium. In the meantime PT /OT was consulted because patient continue to feel weakness in lower extremities. Normal vitamin B12 and RBC folate. Patient is otherwise hemodynamically stable and medically optimized for discharge. Patient will be discharged to subacute rehab. Patient will be discharged on furosemide 20 mg p.o. daily which he can start within 1 to 2 days on as-needed basis. Discontinuing doxycycline 100 mg p.o. twice daily. Patient will repeat BMP in 1 to 3 days and follow-up on results with PCP. Discharge disposition: Subacute rehab at [facility]. Vital signs reviewed. Gen: in no apparent distress, resting comfortably in bed Eyes: PERRLA, EOMI, no scleral injection or icterus HENT: normocephalic, atraumatic, good hearing acuity, moist mucous membranes Neck: full range of motion Resp: CTAB, no rales, rhonchi, or wheezes CVS: normal S1 and S2, no murmurs, rubs or gallops, no edema GI: soft, NTTP, ND, no hepatosplenomegaly : no suprapubic tenderness, no CVAT, campos catheter [is/not] present MSK: no clubbing, no cyanosis, no noted contractures of extremities Skin: no noted rashes, petechiae; temperature of skin is appropriate Neuro: moving all extremities without signs of weakness, CN II-XII intact Psych: cooperative, euthymic mood, insight and judgment intact Dictation was produced using [employer] dictation software. Please excuse any grammatical, word or spelling errors. Patient Condition at Discharge: Stable Plan - Discharge Summary Discharge Rx Participant: No New Discharge Prescriptions: New Furosemide [Lasix] 20 mg PO AC-BID #14 tablet Continue atenoloL [Tenormin] 50 mg PO DAILY Cholecalciferol [Vitamin D3 (25 Mcg = 1000 Iu)] 100 mcg PO DAILY Meclizine [Antivert] 25 mg PO DAILY Aspirin 81 mg PO DAILY lisinopriL 40 mg PO DAILY ALPRAZolam [Xanax] 2 mg PO BID PRN PRN Reason: severe anxiety/panic attacks HYDROcodone/APAP 10-325MG [Amlin 10-325] 1 tab PO QID PRN PRN Reason: Severe Pain (Scale 7 To 10) Carboxymethylcellulose Sodium [Refresh Tears] 1 drop BOTH EYES QID PRN PRN Reason: Dry Eye(S) tiZANidine [Zanaflex] 4 mg PO TID PRN PRN Reason: Muscle Spasm Zolpidem [Ambien] 10 mg PO HS Budesonide/Glycopyr/Formoterol [Breztri Aerosphere Inhaler] 2 puff INHALATION RT-BID Ondansetron Odt [Zofran ODT] 8 mg PO Q8HR PRN PRN Reason: Nausea Gabapentin [Neurontin] 100 mg PO TID Centrum Men's 50 Plus 1 tab PO DAILY Discontinued Furosemide [Lasix] 40 mg PO DAILY Doxycycline Monohydrate 100 mg PO BID Discharge Medication List atenoloL [Tenormin] 50 mg PO DAILY 12/07/18 [History] ALPRAZolam [Xanax] 2 mg PO BID PRN 11/29/24 [History] Aspirin 81 mg PO DAILY 11/29/24 [History] Budesonide/Glycopyr/Formoterol [Breztri Aerosphere Inhaler] 2 puff INHALATION RT-BID 11/29/24 [History] Carboxymethylcellulose Sodium [Refresh Tears] 1 drop BOTH EYES QID PRN 11/29/24 [History] Centrum Men's 50 Plus 1 tab PO DAILY 11/29/24 [History] Cholecalciferol [Vitamin D3 (25 Mcg = 1000 Iu)] 100 mcg PO DAILY 11/29/24 [History] Gabapentin [Neurontin] 100 mg PO TID 11/29/24 [History] HYDROcodone/APAP 10-325MG [Amlin 10-325] 1 tab PO QID PRN 11/29/24 [History] Meclizine [Antivert] 25 mg PO DAILY 11/29/24 [History] Ondansetron Odt [Zofran ODT] 8 mg PO Q8HR PRN 11/29/24 [History] Zolpidem [Ambien] 10 mg PO HS 11/29/24 [History] lisinopriL 40 mg PO DAILY 11/29/24 [History] tiZANidine [Zanaflex] 4 mg PO TID PRN 11/29/24 [History] Furosemide [Lasix] 20 mg PO AC-BID #14 tablet 12/02/24 [Rx] Follow up Appointment(s)/Referral(s): [facility], [NON-STAFF] - Raphael Neal MD [Primary Care Provider] - 1-2 days Ambulatory/Diagnostic Orders: Basic Metabolic Panel [LAB.AMB] Time Frame: 3 Days, Facility: [facility], Location: [facility] Magnesium [LAB.AMB] Time Frame: 3 Days, Facility: [facility], Location: [facility] Patient Instructions/Handouts: Acute Kidney Injury (DC) Activity/Diet/Wound Care/Special Instructions: Please follow-up with your PCP within 1 week. You can take furosemide 20 mg 1 tablet as needed if you notice your swelling of legs is getting worse. Additionally, repeat your lab work within 1-3 days. Discharge/Stand Alone Forms: Who Do I Call?, Help In The Home
[2024-12-02 17:20] VITALS: BP 131/85; PULSE 86
[2024-12-03 03:55] LABS: Methylmalonic Acid 0.24 umol/L (<0.40)
== END 2024-12-02 16:53 | DRG 683 ==
LOC: EC 00:37 → 5NMEDONC 05:22 → 3SCARD 06:19
PROVIDERS: ADMIT Internal Medicine; ATTEND Internal Medicine
DX: N17.0 Acute kidney failure with tubular necrosis (principal); E87.20 Acidosis, unspecified; M62.82 Rhabdomyolysis; J44.9 Chronic obstructive pulmonary disease, unspecified; I10 Essential (primary) hypertension; F32.A Depression, unspecified; E78.5 Hyperlipidemia, unspecified; T50.2X5A Adverse effect of carbonic-anhydrase inhibitors, benzothiadiazides and other diuretics, initial encounter; E83.39 Other disorders of phosphorus metabolism; E83.42 Hypomagnesemia; E83.51 Hypocalcemia; E87.6 Hypokalemia; G62.9 Polyneuropathy, unspecified; F17.210 Nicotine dependence, cigarettes, uncomplicated; D72.829 Elevated white blood cell count, unspecified; E86.1 Hypovolemia; F41.9 Anxiety disorder, unspecified; K59.00 Constipation, unspecified; Z79.82 Long term (current) use of aspirin; Z79.899 Other long term (current) drug therapy; Z96.643 Presence of artificial hip joint, bilateral; X58.XXXA Exposure to other specified factors, initial encounter; Z88.0 Allergy status to penicillin
CPT/HCPCS: 36415; 71045; 76770; 80048; 80053; 81001; 81003; 82306; 82550; 82570; 82607; 82747; 83735; 83880; 83921; 83930; 83935; 83970; 84100; 84133; 84145; 84300; 85025; 93005; 94640; 96365; 96366; 96368; 99285